=== PATIENT | female | born 1955 | race Caucasian/White ===

== ENCOUNTER 2018-08-31 14:54 | Inpatient (IN) | payer BC, MEDICAID ==
[~2018-08-31] VITALS: Ht 162.6 cm; Wt 78.9 kg
[2018-08-31 15:02] VITALS: BP 108/64
--- NOTE | 2018-08-31 15:14 | NUR ---
PT BIB ALS TO ER BED 7
--- NOTE | 2018-08-31 15:14 | NUR ---
BROUGHT IN BY EMS FROM [facility] [place]. ABNORMAL LABS DRAWN TODAY---BUN CR HIGH; HYPERKALEMIA, HYPERNATREMIA. PT HAS TRACHE ON 4 LPM, G-TUBE, COLOSTOMY, 16 FR F/C, PRESSURE ULCER TO COCCYX. HOB UP. ON LOW BED POSITION, LOCKED. BED SIDE RAILS UP X1. ER MADE AWARE OF PT STATUS.
[2018-08-31] MEDS ORDERED: [UNRECOGNIZED DRUG - CODE] GT (15:20)
[2018-08-31] MEDS ORDERED: LOV40I SUBQ (15:20)
[2018-08-31] MEDS ORDERED: OMEP20TC10 GT (15:20)
[2018-08-31] MEDS ORDERED: PRO5 GT (15:20)
[2018-08-31] MEDS ORDERED: NACL 0.9% 1,000 ML IV SCH ×2 (16:26→17:18)
[2018-08-31] MEDS ORDERED: ALBUTEROL 0.083% 2.5 MG/3 ML NEBU INH ONE ×2 (16:30)
[2018-08-31] MEDS ORDERED: methylPREDNISolone SS 125 MG/2 ML VIAL IVP ONE (16:30)
[2018-08-31] MEDS ORDERED: CALCIUM GLUCONATE 10% 1000 MG/10 ML VIAL IVP ONE (16:30)
[2018-08-31] MEDS ORDERED: INSULIN REGULAR, HUMAN 100 UNIT/ML VIAL SUBQ ONE (16:30)
[2018-08-31] MEDS ORDERED: DEXTROSE 50% 50 ML SYR IVP ONE (16:30)
[2018-08-31] MEDS ORDERED: SODIUM POLYSTYRENE 15 GM/60 ML UDBTL PR ONE (16:30)
[2018-08-31] MEDS ORDERED: SODIUM BICARBONATE 8.4% PFS 50 MEQ/50 ML SYR IVP ONE (16:30)
--- NOTE | 2018-08-31 17:00 | NUR ---
MEDICATION TO BE HELD UNTIL CENTRAL LINE IS IN PLACED. DR MARROQUIN AWARE
--- NOTE | 2018-08-31 17:05 | NUR ---
ULTRASOUND AND LAB AT [facility] TO ATTEMPT ABG, [facility]N THERAPY AND RESIRATORY DRUGS AT A LATER TIME NO SOB NOTED SUPPLEMENTAL OXYGEN AT 4 LPM VIA T-BAR/TRACHEOSTOMY
[2018-08-31] MEDS ORDERED: DOCUSATE SODIUM 100 MG GELCAP PO PRN (17:20)
[2018-08-31] MEDS ORDERED: ONDANSETRON 4 MG/2 ML VIAL IM/IVP PRN (17:20)
[2018-08-31] MEDS ORDERED: MORPHINE SULFATE 2 MG/ML SYR IVP PRN (17:20)
[2018-08-31] MEDS ORDERED: LORazepam 2 MG/ML VIAL IVP ONE (17:25)
--- NOTE | 2018-08-31 17:38 | NUR ---
[facility] THERAPY AND RESPIRATORY DRUGS (UD X 2)
--- NOTE | 2018-08-31 17:40 | NUR ---
IV ATIVAN GIVEN ORDERED PRIOR TO CENTRAL LINE INSERTION. SHANTELL BREWER, EMT; PRESSING DEPARTMENT SUPERVISOR AT BEDSIDE FOR CENTRAL LINE INSERTION.
[2018-08-31 17:42] LABS: BASOPHILS % (AUTO) 0.2 % (0.0-2.0); EOSINOPHILS # (AUTO) 0.1 K/uL (0-0.4); EOSINOPHILS % (AUTO) 0.7 % (0.0-4.0); HEMATOCRIT 27.1 % (36-48); HEMOGLOBIN 8.2 g/dL (12.0-16.0); LYMPHOCYTES # (AUTO) 0.6 K/uL (2.5-16.5); LYMPHOCYTES % (AUTO) 2.7 % (20.5-51.1); MEAN CORPUSCULAR HEMOGLOBIN 34 pg (27-31); MEAN CORPUSCULAR HGB CONC 30 g/dL (33-37); MEAN CORPUSCULAR VOLUME 110.7 fL (80-94); MONOCYTES # (AUTO) 0.6 K/uL (0.8-1.0); MONOCYTES % (AUTO) 2.9 % (1.7-9.3); NEUTROPHILS # (AUTO) 19.1 K/uL (1.8-7.7); NEUTROPHILS % (AUTO) 93.5 % (42.2-75.2); PLATELET COUNT (AUTO) 186 K/uL (140-450); RED BLOOD CELL COUNT(AUTO) 2.45 MIL/uL (4.20-5.40); RED CELL DISTRIBUTION WIDTH 16.2 % (11.6-13.7); WHITE BLOOD COUNT (AUTO) 20.4 K/uL (4.8-10.8)
[2018-08-31 17:44] LABS: APPEARANCE,URINE CLOUDY (CLEAR); BILIRUBIN,URINE NEGATIVE (NEGATIVE); BLOOD, URINE 3+ (NEGATIVE); COLOR,URINE YELLOW (YELLOW); LEUKOCYTE ESTERASE ,URINE 2+ (NEGATIVE); NITRITE, URINE POSITIVE (NEGATIVE); UGLUCOSE NEGATIVE (NEGATIVE)
--- NOTE | 2018-08-31 17:46 | NUR ---
DR. ONEIDA MARROQUIN REVIEWED ABG SAMPLE REPORT NO NEW ORDERS
[2018-08-31 17:56] LABS: RBC,URINE TOO NUMEROUS TO COUN /HPF (0-5); WBC,URINE TOO MANY TO COUNT /HPF (0-5)
[2018-08-31 17:57] LABS: ALBUMIN 1.5 g/dL (3.4-5.0); ANION GAP 33.6 (8-16); TOTAL BILIRUBIN 0.8 mg/dL (0.0-1.0)
--- NOTE | 2018-08-31 18:01 | NUR ---
CRITICAL LAB REPORT RECEIVED FROM JULIO. K+: 8.6, ECO2:7, BUN:258
[2018-08-31 18:02] LABS: POTASSIUM 8.6 mmol/L (3.5-5.1)
[2018-08-31 18:05] LABS: CREATININE 7.6 mg/dL (0.6-1.3)
[2018-08-31 18:20] LABS: PROTHROMBIN TIME 10.7 secs (10.8-13.4)
[2018-08-31 18:33] LABS: AMYLASE 989 U/L (25-115); LIPASE 5355 U/L (73-393); MAGNESIUM 2.2 mg/dL (1.8-2.4); PHOSPHORUS 8.2 mg/dL (2.5-4.9); TRIGLYCERIDES 117 mg/dL (30-150)
[2018-08-31 18:34] LABS: CHOL/HDL RATIO 4.9 (1-4.5); HDL CHOLESTEROL 9 mg/dL (40-60); LDL (CALC) 12 mg/dL (60-100)
--- NOTE | 2018-08-31 19:15 | NUR ---
Pt report given to RUY Aviles. Transfer of care at this time.
--- NOTE | 2018-08-31 19:16 | NUR ---
RECEIVED REPORT AT BEDSIDE FROM RUY HOGUE. DR HEIN AND RESIDENTS PRESENT AT BEDSIDE. DR HEIN TRYING TO START CENTRAL LINE.
--- NOTE | 2018-08-31 19:50 | NUR ---
PT ARRIVED TO ICU, AT 1954 DR. HEIN AT BEDSIDE TO INSERT LEFT FEMORAL JADIEL CATH. 1957 KELLY AT BEDSIDE FORM ULTRASOUND AT BEDSIDE. 2007, JADIEL CATH IS INSERTED ON FIRST ATTEMPT.
--- NOTE | 2018-08-31 19:55 | NUR ---
PT TRANSFERRED TO ICU, BED 1. TAKEN VIA GURNEY BY EMT, RT, AND RN. GAVE REPORT TO RUY LEIGH.
[2018-08-31 20:00] VITALS: BP 119/64
[2018-08-31 20:43] VITALS: BP 119/64
[2018-08-31 20:46] LABS: ANION GAP 27.8 (8-16); CARBON DIOXIDE 11.1 mmol/L (21-32)
[2018-08-31] MEDS ORDERED: MEROPENEM 500 MG in NACL 0.9% 50 ML IV SCH (21:00)
[2018-08-31 21:05] LABS: POTASSIUM 6.9 mmol/L (3.5-5.1)
--- NOTE | 2018-08-31 21:06 | NUR ---
PT ARRIVED FROM ER. PT AT BED EYES CLOSED. BREATHING REGULARLY. ETT TO VENT. FIO2 100%, TV 350 RR 16 FLOW 50 PEEP 5. LUNG SOUNDS CLEAR THROUGHOUT, PT NONVERBAL, PERRL 3MM, SLUGGISH, RETRACTS TO PAIN, S1S2 PRESENT, HR SINUS TACH 109, PULSES 2+ BILATERAL UPPER AND LOWER EXTREMITY, FULL, ABDOMINAL BOWEL SOUNDS ACTIVE IN ALL QUADRANTS, G-TUBE IN PLACE, COLOSTOMY APPLIANCE IN PLACE, COVINGTON IN PLACE, PT HAS LEFT FEMORAL JADIEL CATH PIGTAIL, CURRENTLY ON HEMODIALYSIS. GENERALIZED WEAKNESS ON ALL EXTREMITIES. PT HAS STAGE 4 COCCYX PRESSURE ULCER, DRESSING IS DRY AND INTACT. PT HOB AT 30 DEGREES, SIDERAILS UP X2, CALL LIGHT WITHIN REACH. WILL CONTINUE TO MONITOR PT. Addendum: 09/01/18 at 0309 by Maicol Mercado RN PRESSURE ULCER ON LEFT BUTTOCKS
--- NOTE | 2018-08-31 21:15 | NUR ---
DIALYSIS NURSE ANOOP DUENAS AT BEDSIDE, STARTED DIALYSIS AT THIS TIME. FAMILY AT BEDSIDE TO SEE PATIENT, DR FU AT BEDSIDE AND UPDATED ON PT CONDITION TO FAMILY.
[2018-08-31] MEDS ORDERED: ALBUMIN HUMAN 25% 200 ML IV ONE (21:29)
--- NOTE | 2018-08-31 21:44 | NUR ---
2029. PATIENT TRANSFERED FROM ER TO ICU 1. DR HEIN CHANGED PATIENTS CUFFLESS TRACH TO PORTEX SIZE 7 THAT HAS A CUFF.PATIENT ON SETTINGS OF AC 16 VT 350 PEEP 5 AND FIO2 100%.
[2018-08-31 22:00] VITALS: BP 140/82
--- NOTE | 2018-08-31 22:02 | NUR ---
RECEIVED ADMISSION HISTORY FROM FAMILY /SON AT BEDSIDE. SPOKE WITH SON ANURAG VIA PHONE, LISTED CONSERVATOR STATED HAS NOT FILLED OUT ADVANCE DIRECTIVE FORM.
[2018-08-31] MEDS: ALBUTEROL SULFATE/IPRATROPIU 3 ML SOL IH PRN (22:31)
--- NOTE | 2018-08-31 22:36 | NUR ---
SPUTUM UPTAINED AND SENT TO LAB. EKG DONE
[2018-08-31] MEDS ORDERED: MULT15LI1 GT (22:41)
[2018-08-31] MEDS ORDERED: ASCO500T45 PO (22:41)
--- NOTE | 2018-08-31 22:54 | NUR ---
2231 hhntx given inline
[2018-08-31] MEDS ORDERED: LORazepam 2 MG/ML VIAL IVP PRN (23:15)
[2018-08-31] MEDS ORDERED: SODIUM FERRIC GLUCONATE 125 MG in NACL 0.9% 100 ML IV SCH (23:15)
[2018-08-31] MEDS ORDERED: LORazepam 2 MG/ML VIAL ONE ×2 (23:29→23:37)
[2018-08-31] MEDS: LORazepam 2 MG/ML VIAL IVP PRN (23:30)
[2018-08-31] MEDS ORDERED: levETIRAcetam 1,000 MG in NACL 0.9% 100 ML IV ONE (23:40)
[2018-08-31] MEDS ORDERED: DEXTROSE 50% 50 ML SYR IVP PRN (23:45)
[2018-08-31] MEDS ORDERED: INSULIN LISPRO SLIDING SCALE 100 UNITS/ML VIAL SUBQ PRN (23:45)
[2018-08-31 23:49] LABS: MEAN CORPUSCULAR HEMOGLOBIN 34 pg (27-31); MEAN CORPUSCULAR HGB CONC 34 g/dL (33-37); MEAN CORPUSCULAR VOLUME 101.5 fL (80-94); PLATELET COUNT (AUTO) 123 K/uL (140-450); RED BLOOD CELL COUNT(AUTO) 1.59 MIL/uL (4.20-5.40); RED CELL DISTRIBUTION WIDTH 14.4 % (11.6-13.7); WHITE BLOOD COUNT (AUTO) 14.5 K/uL (4.8-10.8)
[2018-08-31 23:55] VITALS: BP 142/70
--- NOTE | 2018-08-31 23:59 | NUR ---
AT [address] CUNNINGHAM AND INFORMED PT WAS HAVING MILD SEIZURES. DR'S ARRIVE AT BEDSIDE, PT HAD INCREASED SEIZURE ACTIVITY, DR. FU ORDERED TO GIVE 1MG ATIVAN. PT SEIZURE ACTIVITY DID NOT SUBSIDE, ORDERED SECOND DOSE OF 2MG ATIVAN. CURAM DEVELOPER, PHOENIX DUENAS RECEIVED ORDER FROM DR. BRODY TO STOP DIALYSIS AT THIS TIME DUE TO SEIZURES AND LOW BP'S (55/20) AND ADMINISTER 1L BOLUS OF NS. BP WAS REASSESSED AND INCREASED TO 177/70, BOLUS WAS STOPPED. PT WITHOUT SEIZURE ACTIVITY AT THIS TIME AND APPEARS TO BE WITHOUT DISTRESS.
[2018-09-01] VITALS (24 sets, daily range): BP systolic 111–148; BP diastolic 54–78
[2018-09-01] MEDS ORDERED: NACL 0.9% 1,000 ML IV SCH
[2018-09-01] MEDS ORDERED: ALBUMIN HUMAN 25% 200 ML IV ONE
--- NOTE | 2018-09-01 | NUR ---
BUSINESS DEVELOPMENT RECRUITER, PHOENIX DUENAS, ENDORSED +1.6L INFUSED.
[2018-09-01 00:17] LABS: ANION GAP 18.5 (8-16); CARBON DIOXIDE 26.6 mmol/L (21-32); CREATININE 2.7 mg/dL (0.6-1.3); POTASSIUM 3.1 mmol/L (3.5-5.1)
[2018-09-01] MEDS: LORazepam 2 MG/ML VIAL IVP PRN ×2 (00:25→01:32)
[2018-09-01 00:35] LABS: HEMATOCRIT 16.2 % (36-48); HEMOGLOBIN 5.4 g/dL (12.0-16.0)
[2018-09-01 00:37] LABS: CORRECTED WHITE BLOOD COUNT 12.6 K/uL (4.5-11.0); LYMPHOCYTES % (MANUAL) 3 % (20-46); MONOCYTES % (MANUAL) 2 % (5-12)
[2018-09-01] MEDS ORDERED: MEROPENEM 500 MG VIAL IV ONE (00:52)
[2018-09-01] MEDS ORDERED: SODIUM FERRIC GLUCONATE 12.5 MG/ML AMP IV ONE (00:54)
[2018-09-01] MEDS ORDERED: SODIUM BICARBONATE 8.4% PFS 50 MEQ/50 ML SYR IVP ONE (01:00)
[2018-09-01] MEDS: SODIUM BICARBONATE 8.4% 100 MEQ in DEXTROSE 5% 1,000 ML IV SCH ×2 (01:13→09:28)
[2018-09-01 01:32] LABS: MEAN CORPUSCULAR HEMOGLOBIN 34 pg (27-31); MEAN CORPUSCULAR HGB CONC 33 g/dL (33-37); MEAN CORPUSCULAR VOLUME 102.1 fL (80-94); PLATELET COUNT (AUTO) 126 K/uL (140-450); RED CELL DISTRIBUTION WIDTH 14.7 % (11.6-13.7); WHITE BLOOD COUNT (AUTO) 15.3 K/uL (4.8-10.8)
[2018-09-01] MEDS ORDERED: LORazepam 2 MG/ML VIAL IVP ONE (01:35)
--- NOTE | 2018-09-01 01:40 | NUR ---
PT HAVING NEW ONSET OF CLONIC SEIZURES AT 0128, UPDATED DR. FU WITH PT CONDITION. ORDERED ATIVAN 2MG IVP. ADMINISTERED MEDICATION. SEIZURE STOPPED AT 0132. WILL CONTINUE TO MONITOR.
[2018-09-01] MEDS ORDERED: levETIRAcetam 100 MG/ML VIAL IV ONE (01:42)
[2018-09-01 02:15] LABS: HEMATOCRIT 16.3 % (36-48); HEMOGLOBIN 5.4 g/dL (12.0-16.0)
[2018-09-01 02:16] LABS: CORRECTED WHITE BLOOD COUNT 13.8 K/uL (4.5-11.0); LYMPHOCYTES % (MANUAL) 1 % (20-46); MONOCYTES % (MANUAL) 1 % (5-12)
--- NOTE | 2018-09-01 04:00 | NUR ---
PT AT BED, EYES CLOSED, BREATHING REGULARLY. IV FLUIDS INFUSING. HOB 30 DEGREES, SIDE RAILS UP X2, CALL LIGHT WITHIN REACH. VS STABLE AT THIS TIME. WILL CONTINUE TO MONITOR.
[2018-09-01] MEDS: MIDODRINE 5 MG TAB GT SCH ×2 (05:00→12:02)
[2018-09-01] MEDS ORDERED: VANCOMYCIN PER PHARMACY MC PRN ×2 (06:25→09:20)
--- NOTE | 2018-09-01 06:33 | NUR ---
RECEIVED PT ON DOCUMENTED SETTINGS, ALARMS ARE ON AND AUDIBLE, PTS TRACH PORTEX 7 IS SECURE, PT IN HF ASLEEP , VENT PLUGGED INTO RED OUTLET , BMV SHEILA FLORIAN TO FOLLOW Addendum: 09/01/18 at 1100 by Temitope [place] RT ON CARESCAPE VENT
--- NOTE | 2018-09-01 07:02 | NUR ---
RECEIVED BEDSIDE REPORT FROM CHIROPRACTIC CARE RN, SHANTELL, FOR CONTINUITY OF CARE. PATIENT IS LETHARGIC, UNABLE TO MAKE NEEDS KNOWN OR FOLLOW COMMANDS. PATIENT'S SKIN IS WARM, DRY, NOT INTACT, SHE HAS PRESSURE INJURY TO SACROCOCCYX, SKIN TEARS TO L. BUTTOCKS AND R. BREAST, DRESSINGS CLEAN AND DRY. SHE HAS R. FEMORAL JADIEL CATHETER IN PLACE. 1 UNIT OF BLOOD IS TRANSFUSING, NO SIGNS OF REACTION NOTED. PATIENT IS TRACH TO VENT, SETTINGS ARE AC/VC 16, FIO2 75%, TV 350, PEEP 5. BREATHING EVEN AND UNLABORED. PATIENT HAS GTUBE IN PLACE, COLOSTOMY TO TO RLQ. PATIENT HAS COVINGTON IN PLACE TO YELLOW URINE. HOB IS 30 DEGREES, BED LOCKED, SIDE RAILS UP. SAFETY PRECAUTIONS AND ALARMS ASSESSED AND ENFORCED. NO SIGNS OF DISTRESS NOTED AT THIS TIME, WILL CONTINUE TO MONITOR
[2018-09-01] MEDS ORDERED: DOCUSATE 100 MG/10 ML UDC PO PRN (07:04)
--- NOTE | 2018-09-01 07:10 | NUR ---
SHEILA REPORTED TO TO DR PRADO
--- NOTE | 2018-09-01 07:30 | NUR ---
REPORT GIVEN TO AM NURSE FOR CONTINUITY OF CARE. PT AT STABLE CONDITION AT THIS TIME.
[2018-09-01] MEDS: BLOOD GLUCOSE MONITORING 1 DEV DEV FS SCH ×4 (07:50→20:40)
--- NOTE | 2018-09-01 07:54 | NUR ---
DR. MENDIOLA AND RESIDENT PHYSICIAN AT BEDSIDE, UPDATED ON PATIENT'S CONDITION. WILL FOLLOW UP ON ANY ORDERS
--- NOTE | 2018-09-01 08:02 | NUR ---
DECREASED FIO2 TO [address]ADO
[2018-09-01] MEDS: ASCORBIC ACID 500 MG TAB PO SCH (08:14)
[2018-09-01] MEDS: ATORVASTATIN 80 MG TAB PO SCH (08:14)
[2018-09-01] MEDS: NYSTATIN 500 MU/5 ML UDC PO SCH ×4 (08:14→20:41)
--- NOTE | 2018-09-01 08:15 | NUR ---
PATIENT HAS BEEN SCREENED AND CATEGORIZED HIGH NUTRITION RISK. PATIENT WILL BE SEEN WITHIN 1-2 DAYS OF ADMISSION. 09/01/18-09/02/[address]
--- NOTE | 2018-09-01 08:15 | NUR ---
SCHEDULED MED GIVEN VIA GTUBE, H2O FLUSH 150ML GIVEN PER MD ORDER
--- NOTE | 2018-09-01 08:30 | NUR ---
STARTED NEW IV ON RIGHT FA, 24G, PT TOLERATED OK.
--- NOTE | 2018-09-01 08:40 | NUR ---
COVINGTON CARE AND ORAL CARE DONE. PT'S LOWER LIP AND TEETH HAS SOME BLOOD, BLEEDING SEEMS COMING FROM HER LOWER LIP, A PIECE OF GAUZE WAS PLACED INSIDE THE LIP TO STOP BLEEDING.
[2018-09-01] MEDS: levETIRAcetam 1,000 MG in NACL 0.9% 100 ML IV SCH ×2 (08:58→20:43)
[2018-09-01] MEDS ORDERED: ENOXAPARIN 40 MG/0.4 ML SYR SUBQ SCH (09:00)
[2018-09-01] MEDS ORDERED: NON-FORMULARY ITEM (Omeprazole 20 MG) GT SCH (09:00)
--- NOTE | 2018-09-01 09:05 | NUR ---
DR. TORIBIO IN TO SEE AND EXAMINE PATIENT, UPDATED ON PATIENT'S CONDITION. DISCUSSED POC WITH RESIDENT DR. PARRISH
--- NOTE | 2018-09-01 09:21 | NUR ---
PATIENT'S SON ANURAG CALLED, UPDATED ON PATIENT'S CONDITION. STATES THAT HE IS THE CONSERVATOR FOR PATIENT BUT HE IS OUT OF TOWN. PATIENT'S SON NUMBER IS . DR. PARRISH IS AWARE.
[2018-09-01] MEDS ORDERED: VALPROATE SODIUM 750 MG in NACL 0.9% 100 ML IV SCH (09:30)
[2018-09-01] MEDS ORDERED: PROBIOTIC SCREEN 1 EA MISC MC PRN (09:40)
[2018-09-01] MEDS: MEROPENEM 500 MG in NACL 0.9% 50 ML IV SCH ×2 (09:51→20:43)
[2018-09-01] MEDS ORDERED: VANCOMYCIN 750 MG in DEXTROSE 5% 250 ML IV SCH (10:00)
[2018-09-01] MEDS ORDERED: LANSOPRAZOLE 30 MG CAPDR GT SCH (10:00)
[2018-09-01 10:11] LABS: AMYLASE 572 U/L (25-115)
[2018-09-01 10:13] LABS: ANION GAP 17.3 (8-16); CARBON DIOXIDE 27.4 mmol/L (21-32); CREATININE 3.3 mg/dL (0.6-1.3); POTASSIUM 3.7 mmol/L (3.5-5.1)
[2018-09-01 10:20] LABS: LIPASE 2426 U/L (73-393)
--- NOTE | 2018-09-01 10:20 | NUR ---
SPOKE WITH PATIENT'S , NICHOLAS BLUE, STATES THAT THEY PREFER PATIENT TO GO TO [facility]
--- NOTE | 2018-09-01 10:50 | NUR ---
WENT TO LAB TO GET THE 2ND UNIT OF BLOOD, LAB ONLY HAS O POS BLOOD, NOT A POS. VICENTE CALLED DR PARRISH AND THEY DECIDED TO GET A POS BLOOD FROM [facility]. ASKED VICENTE TO CALL ICU WHEN THE BLOOD IS READY.
--- NOTE | 2018-09-01 11:07 | NUR ---
PATIENT'S IS HERE, UPDATED ON PATIENT'S CONDITION. SPOKE WITH HIM REGARDING TRANSFERRING PATIENT TO ANOTHER HOSPITAL FOR HIGHER LEVEL OF CARE, HE STATES THAT HE LIVES IN [facility] AND WILL ONLY ACCEPT [place]ING [place] [facility]. HE IS AWARE THAT [facility] CONTACTED [facility] BUT HE DOES NOT WANT HER TO GO THERE BECAUSE IT IS TOO FAR OF A DRIVE FOR HIM. HE STATES THAT EVEN IF [facility] WILL ACCEPT HER, HE DOES NOT WANT HER TO BE TRANSFERRED THERE. LIBRARY HISTORIAN AND DR. PARRISH ARE AWARE.
--- NOTE | 2018-09-01 11:27 | NUR ---
FAXED ALL PATIENT'S MEDICAL INFORMATION TO [facility] . FAMILY PREFERRED [facility] SINCE THEY HAVE FAMILY PHYSICIAN DR MILTON ELLIS [phone]. I RECEIVED A CALL FROM [facility] UPDATED ALL PT'S CONDITION AND PROVIDED DR MENDIOLA 'S PHONE NUMBER FOR TO DR MISTRY AND STATED WORKING ON IT AND WILL CALL BACK.
--- NOTE | 2018-09-01 11:47 | NUR ---
CALLED [facility] AND SPOKE WITH SHANTELL BED CONTROL UPDATED ALL PATIENT'S INFORMATION AND CLARIFIED AND NOTIFIED THAT DR MILTON ELLIS [phone] IS FAMILIES WITH THE PATIENT. PER SHANTELL WILL WORKING ON IT AND WILL CALL BACK.
[2018-09-01] MEDS ORDERED: THERAHONEY GEL 42.5 GM TP SCH (11:51)
[2018-09-01] MEDS ORDERED: CALCIUM ACETATE 667 MG TAB GT SCH (11:58)
--- NOTE | 2018-09-01 12:15 | NUR ---
SPOKE WITH PATIENT'S SON ANURAG REGARDING WORKING ON TRANSFERRING PATIENT TO HIGHER LEVEL OF CARE. STATES THAT HE PREFERS [facility] BUT IS OPEN TO TRANSFERRING TO [facility] IF THEY ARE WILLING TO ACCEPT HER BUT HE IS GOING TO SPEAK WITH HIS FATHER ABOUT CHANGING HIS MIND.
[2018-09-01] MEDS ORDERED: VANC750F IV (12:47)
[2018-09-01] MEDS ORDERED: MERO1PDS7 IV (12:47)
--- NOTE | 2018-09-01 13:00 | NUR ---
SHANTELL [place] [facility] [place] AND NEEDED TO SPEAK WITH TRANSFERRED THE CALL TO DR PARRISH
[2018-09-01 13:42] LABS: EOSINOPHILS # (AUTO) 0.4 K/uL (0-0.4); EOSINOPHILS % (AUTO) 1.6 % (0.0-4.0); HEMATOCRIT 20.4 % (36-48); LYMPHOCYTES # (AUTO) 0.6 K/uL (2.5-16.5); MONOCYTES # (AUTO) 0.4 K/uL (0.8-1.0); MONOCYTES % (AUTO) 1.7 % (1.7-9.3); NEUTROPHILS % (AUTO) 94.2 % (42.2-75.2); RED BLOOD CELL COUNT(AUTO) 2.08 MIL/uL (4.20-5.40)
[2018-09-01 13:45] LABS: LYMPHOCYTES % (AUTO) 2.5 % (20.5-51.1); MEAN CORPUSCULAR HEMOGLOBIN 33 pg (27-31); MEAN CORPUSCULAR HGB CONC 33 g/dL (33-37); RED CELL DISTRIBUTION WIDTH 15.5 % (11.6-13.7); WHITE BLOOD COUNT (AUTO) 24.4 K/uL (4.8-10.8)
[2018-09-01 13:53] LABS: HEMOGLOBIN 6.8 g/dL (12.0-16.0); PLATELET COUNT (AUTO) 89 K/uL (140-450)
--- NOTE | 2018-09-01 14:02 | NUR ---
CALLED VICENTE IN LAB, MADE SHE AWARE THAT SHE SOMEHOW ENTERED A PLASMA ORDER. SHE SAID IT MIGHT BE A COMPUTER ERROR AND SHE WILL FIX IT.
--- NOTE | 2018-09-01 14:20 | NUR ---
09/01/18 RD INITIAL ASSESSMENT COMPLETED PLEASE REFER TO NUTRITION ASSESSMENT UNDER CARE ACTIVITY FOR ESTIMATED NUTRITIONAL NEEDS. 1. CONTINUE NPO MEDICALLY NECESSARY 2. RECOMMEND NEPRO 35 ML/HR IF PT NEED TO INITIATE TUBE FEED -THIS WILL PROVIDED 840 ML VOLUME, 1512 KCAL, 68 GMS PROTEIN. IT WILL MEED 100% OF ENERGY AND PROTEIN NEEDS. 3. RECOMMEND FWF 130 Q4H OR PER MD 4. RD TO FOLLOW-UP 2-3 DAYS, HIGH RISK NORBERT RICO RD
--- NOTE | 2018-09-01 14:30 | NUR ---
DR PARRISH AND DATA ENTRY SPECIALIST ERMA WERE HERE, PLAN OF CARE BEEN DISCUSSED WITH PT'S AND PT'S OLDEST SON. Addendum: 09/01/18 at 1651 by Zay Qureshi RN PT'S SON
--- NOTE | 2018-09-01 14:45 | NUR ---
DR PARRISH SPOKE WITH THE NEURO SURGEON FROM [facility] AND SPOKE WITH FAMILY MEMBER PATIENT'S AND SON , DR PARRISH UPDATED ALL THE INFORMATION AND PATIENT'S CONDITION PER SON HIS BROTHER ARE COMING FOR [place] WILL DISCUSSED THE CODE STATUS WELL.
--- NOTE | 2018-09-01 14:58 | NUR ---
DR. SHAW IS HERE TO SEE AND EXAMINE PATIENT, UPDATED ON PATIENT'S CONDITION. WILL FOLLOW UP ON ANY ORDERS.
--- NOTE | 2018-09-01 15:31 | NUR ---
CALLED DR PARRISH, ASKED IF CBC IS NEEDED WHEN 2ND BAG OF PRBC IS DONE. SAID WE CAN WAIT FOR TOMORROW MORNING RESULT.
--- NOTE | 2018-09-01 15:36 | NUR ---
SPOKE WITH YASMANI FROM [facility] REGARDING PATIENT'S HX OF FLU AND PNA VACCINE, PER YASMANI FAMILY DID NOT CLAIM THAT PATIENT HAD FLU OR PNA VACCINE. WILL SPEAK WITH PATIENT'S FAMILY.
--- NOTE | 2018-09-01 16:07 | NUR ---
CALLED [facility] SPOKE WITH BED COORDINATOR FOR FOLLOW UP THE STATUS OF TRANSFER TO HIGHER LEVEL OF CARE. NO NEURO SURGEON WILL ACCEPT THE PATIENT AT THIS TIME.
--- NOTE | 2018-09-01 17:05 | NUR ---
DR. PARRISH IN TO SPEAK WITH PATIENT'S FAMILY, UPDATED ON PATIENT'S CONDITION AND PLAN OF CARE
[2018-09-01 17:26] LABS: HEMATOCRIT 23.3 % (36-48); HEMOGLOBIN 7.8 g/dL (12.0-16.0); MEAN CORPUSCULAR HEMOGLOBIN 32 pg (27-31); MEAN CORPUSCULAR HGB CONC 34 g/dL (33-37); MEAN CORPUSCULAR VOLUME 95.3 fL (80-94); PLATELET COUNT (AUTO) 85 K/uL (140-450); RED BLOOD CELL COUNT(AUTO) 2.44 MIL/uL (4.20-5.40); RED CELL DISTRIBUTION WIDTH 16.3 % (11.6-13.7)
[2018-09-01] MEDS ORDERED: SODIUM FERRIC GLUCONATE 125 MG in NACL 0.9% 100 ML IV SCH (17:30)
[2018-09-01 17:33] LABS: WHITE BLOOD COUNT (AUTO) 25.3 K/uL (4.8-10.8)
[2018-09-01] MEDS: DEXT 5% / NACL 0.45% 1,000 ML IV SCH (17:35)
[2018-09-01] MEDS: SODIUM FERRIC GLUCONATE 125 MG in NACL 0.9% 100 ML IV SCH (17:49)
[2018-09-01 17:59] LABS: LYMPHOCYTES % (MANUAL) 7 % (20-46); PROMYELOCYTES % 1 % (0-0)
--- NOTE | 2018-09-01 18:30 | NUR ---
CHANGED TRACH DRESSING, ORAL CARE DONE. PT WAS REPOSITIONED. TOLERATED OK.
--- NOTE | 2018-09-01 19:27 | NUR ---
REPORT GIVEN TO MEDICAL RECORD LIBRARIANS TEACHER NURSE FLORECITA. PT IN STABLE CONDITION.
--- NOTE | 2018-09-01 19:30 | NUR ---
RECEIVED REPORT FROM DAY SHIFT NURSE, WILL FOLLOWUP CARE.
--- NOTE | 2018-09-01 19:40 | NUR ---
PATIENT IS LETHARGIC, UNABLE TO MAKE NEEDS KNOWN OR FOLLOW COMMANDS. AFEBRILE TEMP 97.7, PERRL VERY SLUGGISH 3MM, PATIENT'S SKIN IS WARM, DRY, NOT INTACT, SHE HAS PRESSURE INJURY TO SACROCOCCYX, SKIN TEARS TO L. BUTTOCKS AND R. BREAST, DRESSINGS CLEAN AND DRY. GENERAL EDEMA BUE, BLANKETS ARE PLACED TO PREVENT POOLING. SHE HAS L. FEMORAL JADIEL CATHETER IN PLACE. RIGHT FOREARM PERIPHERAL IV IN PLACE 24G. PATIENT IS TRACH TO VENT, SETTINGS ARE AC/VC FIO2 40%, TV 350, PEEP 5 RATE 12. BREATHING EVEN AND UNLABORED LUNGS CLEAR. S1S2, SR ON MONITOR, PATIENT HAS GTUBE IN PLACE, COLOSTOMY TO TO RLQ, BOWEL SOUNDS HYPOACTIVE, ABDOMEN SOFT AND NONTENDER. PATIENT HAS COVINGTON IN PLACE TO YELLOW URINE. SCD'S IN PLACE. HOB IS 30 DEGREES, BED LOCKED, SIDE RAILS UP. SAFETY PRECAUTIONS AND ALARMS ASSESSED AND ENFORCED. NO SIGNS OF DISTRESS NOTED AT THIS TIME, WILL CONTINUE TO MONITOR
--- NOTE | 2018-09-01 19:50 | NUR ---
Received pt stable on vent support at documented settings, suctioned scant amounts of thin clear secretions, no resp distress or SOB noted at this time, Portex 7 trach secured/midline/patent, alarms set and audible, ambu bag at bedside, vent plugged into red outlet, cont pulse ox on, will cont to monitor.
--- NOTE | 2018-09-01 19:55 | NUR ---
RT DECREASED PATIENT'S FI02 TO 35%, PATIENT TOLERATING WELL.
[2018-09-01] MEDS: VALPROATE SODIUM 750 MG in NACL 0.9% 100 ML IV SCH (20:42)
--- NOTE | 2018-09-01 20:50 | NUR ---
DR. LINDSEY AT BEDSIDE TO ASSESS PATIENT. WILL FOLLOWUP ON ANY NEW ORDERS.
--- NOTE | 2018-09-01 21:00 | NUR ---
RT SWITCHED PATIENT BACK TO FI02 40%, PATIENT STABLE, SATURATING WELL.
--- NOTE | 2018-09-01 23:30 | NUR ---
CALLED DR. FU TO CLARIFY CT OF ABDOMEN/PELVIS ORDER. CONFIRMED PATIENT CURRENTLY STABLE AND TO HOLD OFF ON CT OF ABDOMEN
[2018-09-02] VITALS (24 sets, daily range): BP systolic 85–142; BP diastolic 35–86
--- NOTE | 2018-09-02 01:00 | NUR ---
PT REPOSITIONED AND VAP ORAL CARE PROVIDED. SKIN CARE ALSO PROVIDED AT THIS TIME. PT IS RESTING WELL, NO SIGNS OF LABORED BREATHING. SIDE RAILS ARE PADDED AND SUCTION EQUIPMENT READILY AVAILABLE AT BEDSIDE. WILL CONTINUE TO MONITOR.
--- NOTE | 2018-09-02 03:00 | NUR ---
VAP ORAL CARE PROVIDED, PATIENT IS REPOSITIONED AND SKIN CARE PROVIDED. LOTION APPLIED TO DRY SCALY AREAS-FEET, LEGS, SHOULDERS, BACK. PATIENT IS SUCTIONED AND SATURATING AT 98%. NO DISTRESS NOTED AT THIS TIME. WILL CONTINUE TO MONITOR.
--- NOTE | 2018-09-02 04:25 | NUR ---
BED BATH PROVIDED, SKIN CARE AND WOUNDS ASSESSED. DRESSINGS TO SACRUM AND LEFT BUTTOCK DRY AND INTACT. WILL ENDORSE CARE TO A.M NURSE FOR NEED TO FOLLOWUP WITH WOUND CARE NURSE. COVINGTON CARE AND PERINEAL CARE PROVIDED. URINE OUTPUT 380 ML CLEAR AND YELLOW. PATIENT SUCTIONED, SATURATING WELL. GTUBE FLUSHED WITH 150 ML. NO DISTRESS NOTED AT THIS TIME.
[2018-09-02] MEDS: VALPROATE SODIUM 750 MG in NACL 0.9% 100 ML IV SCH ×3 (05:08→20:51)
--- NOTE | 2018-09-02 05:50 | NUR ---
RT AT BEDSIDE TO ASSESS PATIENT. SUDDENLY SINUS TACH-115 AND DESATTING TO 85%. PATIENT IS SUCTIONED AND PULSE OX IS REPLACED. SATURATION BACK TO 99%, PATIENT IS TOLERATING WELL.
[2018-09-02] MEDS: ALBUTEROL SULFATE/IPRATROPIU 3 ML SOL IH PRN (06:16)
--- NOTE | 2018-09-02 06:16 | NUR ---
REC'D PT ON CARESCAPE VENT SETTINGS AC 12 VT 350 PEEP 5 FIO2 40% ALARMS ON AND AUDIBLE AND AMBU BAG AT SIDE OF VENT AND VENT IS PLUGGED INTO RED OUTLET, I\L TX GIVEN WITH DUONEB 3ML WITH NO ADVERSE REACTION POST TX B\S ARE RHONCHI BILATERALLY, SXN PT SMALL AMT OF CLEAR THIN SECRETIONS, PT IS TRACH WITH PORTEX 7 AND SKIN INTEGRITY IS INTACT PT IS RESTING WITH NO SIGNS OF DISTRESS NOTED
[2018-09-02] MEDS ORDERED: LANSOPRAZOLE 30 MG CAPDR GT SCH (06:30)
[2018-09-02 06:33] LABS: HEMATOCRIT 24.7 % (36-48); HEMOGLOBIN 8.4 g/dL (12.0-16.0); MEAN CORPUSCULAR HEMOGLOBIN 32 pg (27-31); MEAN CORPUSCULAR HGB CONC 34 g/dL (33-37); MEAN CORPUSCULAR VOLUME 94.6 fL (80-94); PLATELET COUNT (AUTO) 74 K/uL (140-450); RED BLOOD CELL COUNT(AUTO) 2.61 MIL/uL (4.20-5.40); RED CELL DISTRIBUTION WIDTH 16.8 % (11.6-13.7); WHITE BLOOD COUNT (AUTO) 21.8 K/uL (4.8-10.8)
[2018-09-02 06:43] LABS: CREATININE 3.5 mg/dL (0.6-1.3)
[2018-09-02 06:46] LABS: MAGNESIUM 1.3 mg/dL (1.8-2.4); PHOSPHORUS 8.4 mg/dL (2.5-4.9)
--- NOTE | 2018-09-02 06:46 | NUR ---
CRITICAL LAB VALUES REPORTED-BUN 103 AND S.Cr 3.5, PATIENT SCHEDULED FOR DIALYSIS TODAY.
--- NOTE | 2018-09-02 06:50 | NUR ---
IN TO SEE PATIENT AND TO FOLLOWUP ON PATIENT STATUS. CONFIRMED TO TRY TO SCHEDULE A TEAM/FAMILY MEETING AROUND NOON TO DISCUSS PATIENT'S STATUS.REPORTED CRITICAL LAB VALUES-BUN 103, S.cR- 3.5. WILL FOLLOWUP ON ANY NEW ORDERS.
[2018-09-02 06:55] LABS: ANION GAP 17.6 (8-16); POTASSIUM 3.6 mmol/L (3.5-5.1)
--- NOTE | 2018-09-02 07:10 | NUR ---
PATIENTS ACCUCHECK IS 63, RECHECKED, IT IS 62. GAVE PATIENT 120 ML OJ WITH 2 PACKS OF SUGAR, WILL FOLLOWUP ACCUCHECK IN 30 MINUTES.
[2018-09-02 07:13] LABS: LYMPHOCYTES % (MANUAL) 5 % (20-46); MONOCYTES % (MANUAL) 3 % (5-12)
[2018-09-02 07:16] LABS: AMYLASE 273 U/L (25-115); LIPASE 1661 U/L (73-393)
[2018-09-02] MEDS: BLOOD GLUCOSE MONITORING 1 DEV DEV FS SCH ×4 (07:20→21:00)
--- NOTE | 2018-09-02 07:25 | NUR ---
ENDORSED CARE AND GAVE BEDSIDE REPORT TO A.M NURSE SIMON FOR CONTINUITY OF CARE.
--- NOTE | 2018-09-02 07:30 | NUR ---
RECEIVED REPORT FROM JOHN WOLF NIGHT NURSE. PATIENT IS TRACH TO VENT SETTING AC 12 VT 350 FIO2 40 % O2 SAT 99% SKIN WARM DRY COLOR PINK NPO EXCEPT MED GTUBE CLAMP. ABDOMEN SOFT . COLOSTOMY BAG HAS GAS BUT NO BM. COVINGTON DRAIN CLEAR YELLOW URINE, ALL EXTREAMITIES STIFF. PT SCHEDULE FOR HEMO DIALYSIS TO DAY.
--- NOTE | 2018-09-02 07:40 | NUR ---
DR MENDIOLA AND THE RESIDENT MAKE ROUND AT BED SIDE.ORDER RECEIVED.
[2018-09-02] MEDS ORDERED: FERROUS GLUCONATE 324 MG TAB GT SCH (08:00)
--- NOTE | 2018-09-02 08:00 | NUR ---
REPOSITION ORAL CARE WITH VAP KIT.
[2018-09-02 08:32] LABS: HEPATITIS A ANTIBODY IGM Negative (Negative); HEPATITIS B SURFACE ANTIBODY Reactive (.); HEPATITIS B SURFACE ANTIGEN Negative (Negative)
[2018-09-02] MEDS: levETIRAcetam 1,000 MG in NACL 0.9% 100 ML IV SCH ×2 (08:40→20:51)
[2018-09-02] MEDS: MEROPENEM 500 MG in NACL 0.9% 50 ML IV SCH ×2 (08:40→20:51)
[2018-09-02] MEDS: ASCORBIC ACID 500 MG TAB PO SCH (08:41)
[2018-09-02] MEDS: MIDODRINE 5 MG TAB PO SCH ×3 (08:41→16:43)
[2018-09-02] MEDS: ATORVASTATIN 80 MG TAB PO SCH (08:42)
[2018-09-02] MEDS: FERROUS SULFATE 300 MG/5 ML UDC GT SCH (09:00)
--- NOTE | 2018-09-02 09:00 | NUR ---
CALLED [facility] SPOKE WITH MELLY BED COORDINATOR NO BED AVAILABLE AT THIS TIME . I ASKED MELLY IF THE NEURO SURGEON IS WILLING TO DISCUSS WITH OUR DR AND PROVIDED DR PARRISH'S NUMBER.
[2018-09-02] MEDS: NYSTATIN 500 MU/5 ML UDC PO SCH ×4 (09:06→20:54)
[2018-09-02] MEDS ORDERED: FERROUS SULFATE 300 MG/5 ML UDC GT SCH (09:15)
[2018-09-02] MEDS ORDERED: MAG SULF 2000 MG/WATER PREMIX 50 ML IV SCH ×2 (10:00→17:00)
[2018-09-02] MEDS ORDERED: BLOOD GLUCOSE MONITORING 1 DEV DEV FS SCH (11:30)
--- NOTE | 2018-09-02 11:30 | NUR ---
WOUND EVALUATION NOTE: REASON FOR WOUND EVALUATION: SACROCOCCYX PRESSURE ULCER INJURIES SKIN ASSESSMENT DONE WITH PRIMARY RN ON THIS 62 Y/O FEMALE PATIENT WITH FROM [facility] TO [facility], WITH INITIAL DIAGNOSIS OF ABNORMAL LAB RESULTS. PAST MEDICAL HISTORY INCLUDES, CVA, DYSPHAGIA WITH GT RESPIRATORY FAILURE WITH TRACH, DM, AND HX OF PRESSURE ULCERS. PT. ADMITTED WITH CHRONIC WOUND TO SACRALCOCCYX PRESSURE INJURY. ALL ABOVE INFORMATION WAS OBTAINED FROM THE ADMISSION H&P. PT�S SKIN IS WARM AND DRY, BLE HAIR GROWTH, +2 EDEMA. DORSAL PEDAL PULSES PRESENT AND NORMAL. CAPILLARY REFILLED < 3 SEC. F/C PATENT WITH MODERATE AMOUNT YELLOW COLOR URINE OUT PUT OBSERVED. PLAN OF CARE DISCUSSED WITH PRIMARY RN. INTEGUMENTARY: -TRACHEOSTOMY STOMA SITE CLEAN AND DRY, FRANCISCO-STOMA SKIN INTACT. -GT STOMA SITE DRY, FRANCISCO-STOMA SKIN INTACT -OLD HEALED SCARS TO MID ABDOMEN -RLQ ABDOMEN COLOSTOMY FUNCTIONING, FRANCISCO- OSTOMY SKIN INTACT -PRESSURE ULCER INJURY UN-STAGEABLE ON SACROCOCCYX, WOUND BED 100% GRANULATING TISSUE 2.5X3X0.8CM, WITH UNDERMINING BETWEEN 10-2 O�CLOCK AND DEEPEST TO 12 O�CLOCK AT 1.2CM, SMALL AMOUNT OF SEROSANGUINEOUS DRAINAGE, NO ODOR, FRANCISCO-WOUND SKIN FRAGILE AND INTACT, SURROUNDING REDNESS AREA 3X4CM INDICATED FURTHER DAMAGE -PRESSURE ULCER INJURY UN-STAGEABLE ON LEFT ISCHIUM 1.8X0.4, 100 % YELLOW SLOUGH, WOUND BED IS MOIST, NO ODOR, FRANCISCO-WOUND SKIN FRAGILE AND INTACT -LEFT MEDIAL THIGH DRY SKIN TEAR 1X4CM SUPERFICIAL DEPTH, WOUND BED IS PINK AND DRY, FRANICSCO-WOUND SKIN INTACT -IAD TO RIGHT AND LEFT GROINS TOWARD PERIANAL REDNESS AND MOIST -LEFT AND RIGHT HEELS BLANCHABLE REDNESS RECOMMENDATIONS: -CLEANSE SACROCOCCYX AND LEFT ISCHIUM PRESSURE ULCER WITH WOUND CLEANING SOLUTION, PAT DRY, PACK THERAHONEY GEL WITH ADAPTIC DRESSING TO WOUND BED, COVER WITH OPTIFOAM DRESSING QM-W-F AND PRN IF SOILING. -APPLY Z- GUARD TO IAD TO RIGHT AND LEFT GROINS AND PERIANAL BIDWC LEAVE IT OPEN TO AIR -APPLY VERSATEL DRESSING TO LEFT MEDIAL THIGH DRY SKIN TEAR CHANGE Q5 DAYS AND PRN IF SOILING -APPLY HEEL PROTECTORS TO BILATERAL HEELS AT ALL TIMES -TURN AND REPOSITION PATIENT Q2H, OFFLOAD SACROCOCCYX AND LEFT ISCHIUM AT ALL TIMES -ASSESS AND MONITOR SKIN CONDITION DURING POSITION CHANGE -OFFLOAD BILATERAL HEELS BY PLACING PILLOWS UNDER CALVES AT ALL TIMES, UNLESS OTHERWISE CONTRAINDICATED -KEEP SKIN CLEAN AND DRY AT ALL TIMES. -PRESSURE REDISTRIBUTION SURFACE THERAPY RECOMMENDATIONS DISCUSSED WITH PRIMARY RN WILL FOLLOW UP PATIENT Q 7-10 DAYS AND PRN. PLEASE CONTACT WOUND CARE NURSE FOR ANY QUESTIONS AND CHANGES IN WOUND CONDITION.
--- NOTE | 2018-09-02 12:00 | NUR ---
VISIT BY AND SON AT BED SIDE,
--- NOTE | 2018-09-02 12:15 | NUR ---
FAMILY MEETING SON ANURAG ARLEEN THE CARDIAC EXERCISE SPECIALIST, TO UPDATE PATIENT CONDITION.
[2018-09-02] MEDS ORDERED: diphenhydrAMINE 50 MG/ML VIAL IVP SCH (12:50)
--- NOTE | 2018-09-02 13:02 | NUR ---
sxn pt large amt of thick yellow secretions pt is receiving dialysis
[2018-09-02] MEDS ORDERED: ALBUMIN HUMAN 25% 100 ML IV SCH (14:00)
--- NOTE | 2018-09-02 14:00 | NUR ---
DR. BARNHART CALL UPDATE PT CONDITION WITH SON ANURAG.
[2018-09-02 15:07] LABS: FOLIC ACID > 20.00 ng/mL (>3.0)
--- NOTE | 2018-09-02 15:30 | NUR ---
HEMODIALYSIS COMPLETED 500 ML OF FLUID REMOVED.
[2018-09-02] MEDS ORDERED: TPN PER PHARMACY MC PRN (16:40)
[2018-09-02] MEDS: THERAHONEY GEL 42.5 GM TP SCH (16:46)
[2018-09-02] MEDS: Z-GUARD PASTE TP SCH (16:47)
[2018-09-02] MEDS: DEXT 5% / NACL 0.45% 1,000 ML IV SCH (16:50)
[2018-09-02] MEDS: ACETAMINOPHEN 325 MG TAB PO PRN (16:58)
--- NOTE | 2018-09-02 17:00 | NUR ---
temp 100.6 COLD SPONGE AND TYLENOL GIVEN ORDERED.
[2018-09-02] MEDS ORDERED: VANCOMYCIN 750 MG in DEXTROSE 5% 250 ML IV SCH (18:00)
--- NOTE | 2018-09-02 19:00 | NUR ---
REPORT GIVE TO MAGY.
--- NOTE | 2018-09-02 19:15 | NUR ---
RECEIVED BEDSIDE REPORT FROM A.M SHIFT NURSE SIMON. WILL FOLLOWUP CARE.
[2018-09-02] MEDS: SODIUM FERRIC GLUCONATE 125 MG in NACL 0.9% 100 ML IV SCH (19:36)
--- NOTE | 2018-09-02 19:37 | NUR ---
RECEIVED PATIENT TRACH PORTEX 7 TO VENT ON SETTINGS: AC/VC 350, 12, +5, 40%. VENT CHECK DONE. VENT ALARMS ON AND AUDIBLE. VENT PLUGGED INTO RED OUTLET. AMBU BAG AT BEDSIDE. AIRWAY SECURE AND PATENT. SUCTIONED MODERATE AMOUNT OF THICK YELLOW/PINK TINGED SECRETIONS. NO PRN BREATHING TX INDICATED AT THIS TIME. NO RESPIRATORY DISTRESS NOTED AT THIS TIME. WILL CONTINUE TO MONITOR.
--- NOTE | 2018-09-02 19:37 | NUR ---
CALLED RESIDENT [facility]CTORS, SPOKE WITH DR. PRADO. CLARIFIED D50% ORDER. RECEIVED AN ADDITIONAL ORDER TO GIVE ONE DOSE OF D 50% D/T BLOOD GLUCOSE AT 71
[2018-09-02 19:56] LABS: HEPATITIS B CORE AB TOTAL POSITIVE (NEGATIVE)
[2018-09-02 19:57] LABS: FERRITIN 1286 ng/mL (15 - 150); TRANSFERRIN 124 mg/dL (200 - 370)
--- NOTE | 2018-09-02 20:00 | NUR ---
PHARMACY CALLED TO REVIEW TPN ORDERED AT 1700. CONFIRMED THAT PHARMACY IS CURRENTLY CLOSED AND CLOSED AT THE TIME OF THE ORDER, WILL RECOMMEND TO ORDER D10 IVF. CALLED DR. FU TO CLARIFY TPN CANNOT BE STARTED TODAY AND THE BAG WILL BE MADE TOMORROW AFTERNOON, DR. FU ORDERED TO SWITCH D5NS TO D10 AT TKO 15MLS/HR.
--- NOTE | 2018-09-02 20:45 | NUR ---
CALLED DR. FU TO CLARIFY HEPARIN SUBQ ORDER AND PT'S PLATELETS ARE 74, CONFIRMED TO HOLD HEPARIN AT THIS TIME. SCD'S IN PLACE.
[2018-09-02] MEDS: FAMOTIDINE 20 MG/2 ML VIAL IV SCH (20:50)
[2018-09-02] MEDS: DEXTROSE 50% 50 ML SYR IVP PRN (20:55)
[2018-09-02] MEDS: DEXTROSE 10% 1,000 ML IV SCH (21:53)
--- NOTE | 2018-09-02 23:15 | NUR ---
PATIENTS GLUCOSE REMAINS LOW-73, PROTOCOL SAYS GIVE D50 FOR BELOW 70, GAVE PATIENT SMALL OJ THROUGH GTUBE. WILL CONTINUE TO MONITOR.
--- NOTE | 2018-09-02 23:30 | NUR ---
VENT CHECK DONE. ALARMS ON AND AUDIBLE. SUCTIONED SMALL AMOUNT OF THICK, YELLOW/PINK TINGED SECRETIONS. NO ACUTE DISTRESS NOTED AT THIS TIME. WILL CONTINUE TO MONITOR.
[2018-09-03] VITALS (22 sets, daily range): BP systolic 82–141; BP diastolic 44–81
--- NOTE | 2018-09-03 | NUR ---
PATIENT IS RESTING WELL IN BED, NO SIGNS OF DISTRESS, UNLABORED BREATHING, TEMPERATURE BACK DOWN TO 98.9, ICE BAGS REMOVED AND PATIENT REPOSITIONED. WILL CONTINUE TO MONITOR.
--- NOTE | 2018-09-03 01:00 | NUR ---
VAP PROTOCOL ORAL CARE GIVEN AT THIS TIME, PATIENT IS SUCTIONED PER HIGH PEAK ALARMS. OXYGENATION 99%. NO DISTRESS NOTED.
--- NOTE | 2018-09-03 03:10 | NUR ---
CALLED RADIOLOGY DEPARTMENT TO ASK IF PT CAN BE WHEELED TO THE DEPARTMENT FOR THE CT. PER MEE, SHE WILL CALL BACK TO CONFIRM.
--- NOTE | 2018-09-03 03:50 | NUR ---
RADIOLOGY CONFIRMED PATIENT IS OK TO SEND OVER FOR CT SCAN OF THE ABDOMEN
--- NOTE | 2018-09-03 04:45 | NUR ---
PATIENT IS BACK FROM CT SCAN OF THE ABDOMEN. SATURATING WELL, VITAL SIGNS WNL. PATIENT BACK IN ROOM ON PRESSURE MATTRESS.
[2018-09-03] MEDS: VALPROATE SODIUM 750 MG in NACL 0.9% 100 ML IV SCH ×3 (05:07→20:35)
[2018-09-03 05:59] LABS: ANION GAP 15.5 (8-16); CARBON DIOXIDE 26.1 mmol/L (21-32); POTASSIUM 3.6 mmol/L (3.5-5.1)
--- NOTE | 2018-09-03 06:00 | NUR ---
RT STARTED PATIENT BACK ON 40% FIO2 SATURATION IN HIGH 80'S. PATIENT TOLERATING WELL.
[2018-09-03 06:04] LABS: MAGNESIUM 1.6 mg/dL (1.8-2.4); PHOSPHORUS 4.2 mg/dL (2.5-4.9)
--- NOTE | 2018-09-03 06:50 | NUR ---
DR. PARRISH IN TO SEE PATIENT, AND UPDATE ON STATUS. PATIENT STILL FULL CODE.
[2018-09-03 07:00] LABS: HEMATOCRIT 25.8 % (36-48); HEMOGLOBIN 8.8 g/dL (12.0-16.0); MEAN CORPUSCULAR HEMOGLOBIN 33 pg (27-31); MEAN CORPUSCULAR HGB CONC 34 g/dL (33-37); MEAN CORPUSCULAR VOLUME 95.7 fL (80-94); PLATELET COUNT (AUTO) 64 K/uL (140-450); RED BLOOD CELL COUNT(AUTO) 2.69 MIL/uL (4.20-5.40); RED CELL DISTRIBUTION WIDTH 16.3 % (11.6-13.7); WHITE BLOOD COUNT (AUTO) 20.8 K/uL (4.8-10.8)
--- NOTE | 2018-09-03 07:55 | NUR ---
GAVE REPORT TO A.M NURSES MARVIN AND LASHELL , AT PT BEDSIDE FOR CONTINUITY OF CARE.
--- NOTE | 2018-09-03 07:55 | NUR ---
RECEIVED REPORT FROM TELEMETRY REGISTERED NURSE RN. PT RESTING IN IN BED. ST ON MONITOR. SKIN DRY AND WARM TO TOUCH. PUPILS REACTIVE TO LIGHT. ON TRACH TO VENT. FIO2 40% TV 350 RR 12 PEEP 5. NO SOB OR ACUTE RESPIRATORY DISTRESS NOTED. LUNGS COARSE. RIGHT FA 24G. SALINE LOCK. FLUSHED. LUQ G-TUBE IN PLACE. 0 RESIDUAL. OLD SURGICAL SCAR ON MID ABDOMEN. ABDOMEN SOFT, ROUND AND NON-TENDER. HYPOACTIVE BOWEL SOUND. LEFT FEMORAL JADIEL CATH WITH PIGTAIL IN PLACE. JADIEL CATH COVERED WITH DRESSING, INTACT. PIGTAIL FLUSHED. GOOD BLOOD RETURNS. DEX10% INFUSING AT 15 ML/HR. [place] CATH IN PLACE. CONTRACTED AND EDEMATOUS BOTH UPPER AND LOWER EXTREMITIES. KEPT PRESSURE AREAS OFF LOADED. HOB ELEVATED. BED IN LOW POSITION LOCKED. WILL CONTINUE TO MONITOR.
--- NOTE | 2018-09-03 08:00 | NUR ---
BODY TEMPERATURE 100.3 DEGREE F NOTED. COOLING MEASURES APPLIED.
[2018-09-03 08:35] LABS: LYMPHOCYTES % (MANUAL) 3 % (20-46); MONOCYTES % (MANUAL) 2 % (5-12)
[2018-09-03 08:38] LABS: AMYLASE 216 U/L (25-115); LIPASE 1259 U/L (73-393)
[2018-09-03 08:41] LABS: ALBUMIN 2.1 g/dL (3.4-5.0)
[2018-09-03 08:45] LABS: CHOL/HDL RATIO 5.8 (1-4.5)
--- NOTE | 2018-09-03 09:00 | NUR ---
BODY TEMPERATURE DECREASED TO 100 DEGREE F. COOLING MEASURES IN PLACE.
[2018-09-03] MEDS: DEXTROSE 50% 50 ML SYR IVP PRN (09:08)
--- NOTE | 2018-09-03 09:09 | NUR ---
CALLED [facility] AND SPOKE WITH CORY FOR F/U TRANSFER FOR HIGHER LEVEL OF CARE UPDATED ALL THE INFORMATION STILL NO ICU BED AVAILABLE .
[2018-09-03] MEDS: BLOOD GLUCOSE MONITORING 1 DEV DEV FS SCH ×4 (09:10→20:31)
[2018-09-03] MEDS: ATORVASTATIN 80 MG TAB PO SCH (09:28)
[2018-09-03] MEDS: NYSTATIN 500 MU/5 ML UDC PO SCH ×4 (09:28→20:32)
[2018-09-03] MEDS: ASCORBIC ACID 500 MG TAB PO SCH (09:28)
[2018-09-03] MEDS: FERROUS SULFATE 300 MG/5 ML UDC GT SCH (09:28)
[2018-09-03] MEDS: FAMOTIDINE 20 MG/2 ML VIAL IV SCH ×2 (09:29→20:32)
[2018-09-03] MEDS: MEROPENEM 500 MG in NACL 0.9% 50 ML IV SCH ×2 (09:29→20:33)
--- NOTE | 2018-09-03 09:57 | NUR ---
PT NOTED WITH BLOOD TINGED URINE. DR. HARTMAN MADE AWARE. ORDERED TO DISCONTINUE HEPARIN. WILL CARRY OUT ORDER.
--- NOTE | 2018-09-03 09:57 | NUR ---
DR. HARTMAN IN TO SEE THE PT. UPDATED PT STATUS. MADE AWARE ABOUT LOW BS 53, ADMINISTRATION OF DEX 50%. MADE AWARE OF TODAY'S LAB RESULTS AND INCREASING BODY TEMPERATURE. FOLLOW UP REGARDING FEEDING. TPN OKAY PER DR. HARTMAN.
[2018-09-03] MEDS: ALBUTEROL SULFATE/IPRATROPIU 3 ML SOL IH PRN (10:08)
--- NOTE | 2018-09-03 10:08 | NUR ---
RECEIVED ON [employer] CARESCAPE R860 VENTILATOR PLUGGED INTO RED OUTLET TOLERATING WELL WITHOUT INCIDENT TO A PORTEX DCT #7 AIRWAY SECURED WITH A YEISON TRACH TIE CUFF PRESSURE CHECKED NOTED AMBU BAG NOTED AT HOB LOC NO RES[ONSIVE TO BLUNGER MACHINE OPERATOR VERBAL COMMANDS RESPONSIVE TO PHYSICAL STIMULUS (IE: SUCTIONING) EQUAL CHEST RISE BREATH SOUNDS XP CAORSE RHONCHI AND WHEEZE BILATERAL DEEP TRACHEAL SUCTION FOR MODERATE THICK YELLOW/BLOOD SECRETIONS AIRWAY PATENT SATURATION 100% ON FIO2 OF 40% POST HHN THERAPY TITRATED FIO2 TO 30% MARVIN/RN NOTIFIED
[2018-09-03] MEDS: ACETAMINOPHEN 325 MG TAB PO PRN (10:15)
[2018-09-03] MEDS: levETIRAcetam 1,000 MG in NACL 0.9% 100 ML IV SCH ×2 (10:19→20:35)
--- NOTE | 2018-09-03 11:09 | NUR ---
DR. LAROSE MADE AWARE OF PT STATUS AND LAB RESULTS. Addendum: 09/03/18 at 1112 by Fabi Mosquera RN DR. LAROSE ALSO SAID WE WILL START G-TUBE FEEDING INSTEAD OF TPN. WILL CARRY OUT ORDER.
[2018-09-03] MEDS ORDERED: MAGNESIUM OXIDE 400 MG TAB GT SCH (11:30)
--- NOTE | 2018-09-03 11:30 | NUR ---
TEMPERATURE RECHECKED WAS 98.3 DEGREE F.
[2018-09-03] MEDS: MIDODRINE 5 MG TAB PO SCH ×2 (12:11→18:08)
--- NOTE | 2018-09-03 12:12 | NUR ---
RESTING COMFORTABLY NO DISTRESS NOTED EQUAL CHEST RISE
[2018-09-03] MEDS: Z-GUARD PASTE TP SCH (12:23)
--- NOTE | 2018-09-03 12:27 | NUR ---
RESIDUAL 0 NOTED. G-TUBE FEEDING STARTED AT 10 ML/HR. KEPT HOB ELEVATED.
--- NOTE | 2018-09-03 13:30 | NUR ---
DR. SHAW IN TO SEE PT. UPDATED PT STATUS AND LABS.
--- NOTE | 2018-09-03 14:23 | NUR ---
NO DISTRESS NOTED EQUAL CHEST RISE GOOD AERATION THROUGHOUT BILATERAL LUNG MONTERO AIRWAY PATENT
--- NOTE | 2018-09-03 15:14 | NUR ---
CAROL MADE AWARE OF SCHEDULED HD TOMORROW.
--- NOTE | 2018-09-03 15:55 | NUR ---
CALLED [facility] AND SPOKE WITH ANTIONE GRANITE COUNTERTOP INSTALLER NOTIFIED PT HAS LTAC EVAL ,PER ANTIONE WILL COME TOMORROW TO EVALUATE PATIENT.
--- NOTE | 2018-09-03 16:00 | NUR ---
ATTEMPTED TO DO AN ASSESSMENT AT BEDSIDE TO TALK TO SPOUSE IN ICU, SPOUSE JUST LEFT, WILL CALL HIM ON THE PHONE.
--- NOTE | 2018-09-03 16:07 | NUR ---
RESTING IN BED. NO SOB OR ACUTE RESPIRATORY DISTRESS NOTED. VSS. IV SITE INTACT. HOB ELEVATED. CONTINUE TO MONITOR.
--- NOTE | 2018-09-03 16:15 | NUR ---
CALLED SPOUSE NICHOLAS BLUE, TO DO AN ASSESSMENT OVER THE PHONE, SPOUSE SAID THAT HE WILL DO IT TOMORROW WHEN HE COMES IN THE HOSPITAL. INSTRUCTED MR NICHOLAS BLUE TO ASK FOR [employer] TO DO THE ASSESSMENT WHEN HE COMES TOMORROW, VERBALIZED UNDERSTANDING.
--- NOTE | 2018-09-03 16:34 | NUR ---
RESIDUAL NOTED 80 ML. CONTINUED G-TUBE FEEDING AT 10 ML/HR. HOB ELEVATED.
--- NOTE | 2018-09-03 16:39 | NUR ---
DR. PARRISH MADE AWARE OF BS AND RESIDUAL 80 ML. OKAY TO INCREASE THE RATE BY 10 ML/HR. INCREASED THE RATE TO 20 ML/HR.
--- NOTE | 2018-09-03 16:59 | NUR ---
NO DISTRESS NOTED EQUAL CHEST RISE DEEP TRACHEAL SUCTION FOR SMALL SCATTERED THICK YELLOW SECRETIONS AIRWAY PATENT INCREASED Vt TO 400 L FOR APPROXIMATELY 7 ml/kg BRODERICK NOTIFIED Addendum: 09/03/18 at 1712 by Saul Gill RT SATURATION 100% ON FIO2 OF 30% TITRATED FIO2 TO 28% BRODERICK NOTIFIED
--- NOTE | 2018-09-03 16:59 | NUR ---
PT EVALUATED BY DR. PARRISH.
--- NOTE | 2018-09-03 17:14 | NUR ---
DR. PARRISH AWARE OF FLUCTUATING BP LOW TO NORMAL.
[2018-09-03] MEDS: SODIUM FERRIC GLUCONATE 125 MG in NACL 0.9% 100 ML IV SCH (17:54)
--- NOTE | 2018-09-03 19:25 | NUR ---
REPORT GIVEN TO REGULATORY ATTORNEY RN FOR CONTINUITY OF CARE.
--- NOTE | 2018-09-03 19:30 | NUR ---
RECEIVED REPORT FROM MORNING RN, MARVIN/LASHELL, FOR CONTINUITY OF CARE. VS STABLE AT THIS TIME. AFEBRILE. FLACC 0. SPONTANEOUS EYE OPENING NOTED. PERRL. SEIZURE PRECAUTIONS IN PLACE. SR ON MONITOR. BP WNL. PULSES PALPABLE IN ALL EXTREMITIES. LUNG SOUNDS AUSCULTATED. CRACKLES HEARD. RESPIRATIONS EVEN AND UNLABORED. TRACH TO VENT WITH SETTINGS: FIO2 30%, RATE12, PEEP 5 AND TV400. NO SOB NOTED. ABDOMEN ROUND, SOFT AND NON-DISTENDED. BS ACTIVE IN ALL QUADRANTS. GTUBE ON LUQ OF ABD. NO RESIDUAL NOTED. PT ON NEPRO AT 20ML/HR. INCREASED THE RATE TO 35ML/HR WHICH IS THE GOAL. PT HAS ILEOSTOMY IN PLACE. OSTOMY BAG EMPTY AT THIS TIME. [place] CATHETER IN PLACE DRAINING CLEAR AND YELLOW URINE. PT APPEARS TO HAVE ADEQUATE URINARY OUTPUT AT THIS TIME. PT HAS LEFT FEMORAL JADIEL CATHETER WITH PIGTAIL. PT HAS RIGHT FOREARM PERIPHERAL IV ACCESS, 24G; LINE IS PATENT, INTACT AND ASYMPTOMATIC. PT HAS DEXTROSE 10% RUNNING AT 30ML/HR. PT HAS SCD IN PLACE. SPECIALIZED MATTRESS WELL. ALL SAFETY PRECAUTIONS ARE IN PLACE. WILL CONTINUE TO MONITOR PT.
--- NOTE | 2018-09-03 19:54 | NUR ---
RECEIVED PATIENT TRACH PORTEX 7 TO VENT ON SETTINGS: AC/VC 400, 12 +5, 30%. VENT CHECK DONE. VENT ALARMS ON AND AUDIBLE.VENT PLUGGED INTO RED OUTLET. AMBU BAG AT BEDSIDE. AIRWAY SECURE AND PATENT. SUCTIONED SCANT AMOUNT OF THICK, YELLOW/PINK TINGED SECRETIONS. NO ACUTE RESPIRATORY DISTRESS NOTED AT THIS TIME. WILL CONTINUE TO MONITOR.
--- NOTE | 2018-09-03 21:14 | NUR ---
VENT CHECK DONE. ALARMS ON AND AUDIBLE. AMBU BAG AT BEDSIDE. SUCTIONED SCANT AMOUNT OF THICK, YELLOW/PINK TINGED SECRETIONS. NO RESPIRATORY DISTRESS NOTED. WILL CONTINUE TO MONITOR.
--- NOTE | 2018-09-03 21:48 | NUR ---
PT TURNED AND REPOSITIONED. CURRENTLY NO CHANGE IN CONDITION. VS REMAINS STABLE. RESPIRATIONS EVEN AND UNLABORED. PT DOES NOT APPEAR TO BE EXPERIENCING ANY DISCOMFORT AT THIS TIME. FLACC 0
[2018-09-03] MEDS: DEXTROSE 10% 1,000 ML IV SCH (22:00)
--- NOTE | 2018-09-03 22:58 | NUR ---
DR. LINDSEY AT BEDSIDE TO SEE PT; UPDATED HIM REGARDING PT'S CONDITION. NO NEW ORDERS RECEIVED AT THIS TIME.
[2018-09-04] VITALS (24 sets, daily range): BP systolic 76–120; BP diastolic 43–68
--- NOTE | 2018-09-04 00:12 | NUR ---
NO CHANGE IN PT'S CONDITION. VS WNL. RESPIRATIONS REMAIN EVEN AND UNLABORED. PT OCCASIONALLY OPENS EYES. FLACC 0. PT DOES NOT APPEAR TO BE EXPERIENCING ANY DISCOMFORT AT THIS TIME.
[2018-09-04] MEDS: Z-GUARD PASTE TP SCH ×2 (00:25→15:41)
--- NOTE | 2018-09-04 01:43 | NUR ---
PT NOTED TO HAVE ELEVATED TEMPERATURE OF 102; MEDICATION ADMINISTERED. COOLING MEASURES IN PLACE. WILL CONTINUE TO MONITOR
[2018-09-04] MEDS: ACETAMINOPHEN 325 MG TAB PO PRN ×2 (01:46→09:40)
--- NOTE | 2018-09-04 03:45 | NUR ---
RECHECKED PT'S TEMPERATURE AND WAS 99.3.
--- NOTE | 2018-09-04 03:45 | NUR ---
MORNING CARE PROVIDED TO PT. PT REMAINS AFEBRILE. NO CHANGE IN PT'S CONDITION. RESPIRATION EVEN AND UNLABORED. PT TOLERATED BEING TURNED AND REPOSITIONED. COVINGTON CATHETER CARE PROVIDED. ONLY 20ML RESIDUAL ASPIRATED AT THIS TIME. ILEOSTOMY EMPTIED. HOB KEPT AT 30 DEGREES. ALL SAFETY PRECAUTIONS ARE IN PLACE. WILL CONTINUE TO MONITOR PT.
[2018-09-04] MEDS: VALPROATE SODIUM 750 MG in NACL 0.9% 100 ML IV SCH ×3 (05:08→20:40)
--- NOTE | 2018-09-04 05:53 | NUR ---
CALLED RESIDENT DOCTOR, SPOKE WITH DR. CULLEN. INFORMED HER REGARDING THE RESULTS OF THE MICROBIOLOGY. TO FOLLOW-UP WITH DR. LINDSEY.
[2018-09-04 06:07] LABS: ANION GAP 16.6 (8-16); CARBON DIOXIDE 22.9 mmol/L (21-32); CREATININE 2.7 mg/dL (0.6-1.3)
[2018-09-04 06:12] LABS: MAGNESIUM 1.6 mg/dL (1.8-2.4); PHOSPHORUS 5.3 mg/dL (2.5-4.9)
[2018-09-04 06:15] LABS: POTASSIUM 2.5 mmol/L (3.5-5.1)
[2018-09-04 06:17] LABS: AMYLASE 174 U/L (25-115); LIPASE 1293 U/L (73-393)
[2018-09-04] MEDS: BLOOD GLUCOSE MONITORING 1 DEV DEV FS SCH ×4 (06:30→20:29)
--- NOTE | 2018-09-04 06:33 | NUR ---
CALLED DR. CULLEN TO CLARIFY REGARDING MIDODRINE. SBP 116 AT THIS TIME. ACCORDING TO DR. CULLEN, HOLD MIDORINE AT THIS TIME.
[2018-09-04] MEDS: MIDODRINE 5 MG TAB PO SCH ×3 (06:34→18:44)
--- NOTE | 2018-09-04 06:45 | NUR ---
DR. PARRISH AT BEDSIDE. INFORMED HER REGARDING PT'S CONDITION. PER DR. PARRISH, DECREASE D10 AT 10ML/HR.
[2018-09-04] MEDS ORDERED: KCL 20 MEQ/WATER INJ PREMIX 200 ML IV SCH (07:00)
[2018-09-04] MEDS ORDERED: POTASSIUM CHLORIDE 20% 40 MEQ/15 ML UDC GT SCH (07:00)
--- NOTE | 2018-09-04 07:15 | NUR ---
RECEIVED REPORT FROM DORMITORY SUPERVISOR RN. PT RESTING IN IN BED. ST ON MONITOR. SKIN DRY AND WARM TO TOUCH. PUPILS REACTIVE TO LIGHT. ON TRACH TO VENT. FIO2 30% TV 400 RR 12 PEEP 5. NO SOB OR ACUTE RESPIRATORY DISTRESS NOTED. LUNGS COARSE. RIGHT FA 24G. SALINE LOCK. LUQ G-TUBE IN PLACE. 0 RESIDUAL. OLD SURGICAL SCAR ON MID ABDOMEN. ABDOMEN SOFT, ROUND AND NON-TENDER. ACTIVE BOWEL SOUND. RIGHT ILEOSTOMY BAG IN PLACE. LEFT FEMORAL JADIEL CATH WITH PIGTAIL IN PLACE. JADIEL CATH COVERED WITH DRESSING, INTACT. PIGTAIL FLUSHED. GOOD BLOOD RETURNS. DEX10% INFUSING AT 10 ML/HR. C[place] CATH IN PLACE. CONTRACTED AND EDEMATOUS BOTH UPPER AND LOWER EXTREMITIES. KEPT PRESSURE AREAS OFF LOADED. HOB ELEVATED. BED IN LOW POSITION LOCKED. WILL CONTINUE TO MONITOR.
--- NOTE | 2018-09-04 07:15 | NUR ---
REPORT GIVEN TO MORNING RN, MARVIN, FOR CONTINUITY OF CARE. VS STABLE AT THIS TIME.
[2018-09-04 07:32] LABS: BASOPHILS % (AUTO) 0.1 % (0.0-2.0); EOSINOPHILS % (AUTO) 0.2 % (0.0-4.0); MEAN CORPUSCULAR VOLUME 96.8 fL (80-94)
[2018-09-04 07:53] LABS: HEMATOCRIT 22.1 % (36-48); HEMOGLOBIN 7.4 g/dL (12.0-16.0); LYMPHOCYTES # (AUTO) 0.3 K/uL (2.5-16.5); LYMPHOCYTES % (AUTO) 1.2 % (20.5-51.1); MEAN CORPUSCULAR HEMOGLOBIN 32 pg (27-31); MEAN CORPUSCULAR HGB CONC 34 g/dL (33-37); MONOCYTES # (AUTO) 0.5 K/uL (0.8-1.0); MONOCYTES % (AUTO) 2.2 % (1.7-9.3); NEUTROPHILS # (AUTO) 21.7 K/uL (1.8-7.7); NEUTROPHILS % (AUTO) 96.3 % (42.2-75.2); PLATELET COUNT (AUTO) 50 K/uL (140-450); RED BLOOD CELL COUNT(AUTO) 2.28 MIL/uL (4.20-5.40); RED CELL DISTRIBUTION WIDTH 16.5 % (11.6-13.7)
[2018-09-04 08:19] LABS: WHITE BLOOD COUNT (AUTO) 22.5 K/uL (4.8-10.8)
[2018-09-04] MEDS: FERROUS SULFATE 300 MG/5 ML UDC GT SCH (09:00)
[2018-09-04] MEDS: MEROPENEM 500 MG in NACL 0.9% 50 ML IV SCH ×2 (09:36→20:40)
[2018-09-04] MEDS: FAMOTIDINE 20 MG/2 ML VIAL IV SCH ×2 (09:36→20:41)
[2018-09-04] MEDS: ASCORBIC ACID 500 MG TAB PO SCH (09:37)
[2018-09-04] MEDS: NYSTATIN 500 MU/5 ML UDC PO SCH ×4 (09:37→20:41)
[2018-09-04] MEDS: ATORVASTATIN 80 MG TAB PO SCH (09:37)
[2018-09-04] MEDS: levETIRAcetam 1,000 MG in NACL 0.9% 100 ML IV SCH ×2 (10:17→20:40)
--- NOTE | 2018-09-04 11:29 | NUR ---
Yoseph shaver [facility] came in and met with the regarding transfer to [facility] close to the home residence. Yoseph stated will obtain authorization from [employer] [place].
--- NOTE | 2018-09-04 11:30 | NUR ---
ANTIONE FROM [facility] VISITED PATIENT ,SPOKE WITH THE FAMILY () OK TO PLACE HER TO [facility]. PER ANTIONE WAITING FOR [facility] TO GIVEN AUTHORIZATION.
--- NOTE | 2018-09-04 12:04 | NUR ---
ORAL CARE PROVIDED. KEPT PT CLEAN AND DRY. NO SOB OR ACUTE RESPIRATORY DISTRESS NOTED. RESIDUAL 10 ML NOTED. CONTINUE ON G-TUBE FEEDING. HOB ELEVATED. BED IN LOW POSITION LOCKED. CONTINUE TO MONITOR.
[2018-09-04] MEDS ORDERED: VANCOMYCIN HCL 750 MG in DEXTROSE 5% 250 ML IV SCH (13:00)
--- NOTE | 2018-09-04 13:05 | NUR ---
09/04/18 RD FOLLOW UP COMPLETED PLEASE REFER TO NUTRITION PROGRESS NOTE UNDER CARE ACTIVITY FOR ESTIMATED NUTRITION NEEDS. RD RECOMMENDATIONS: 1. CONTINUE NEPRO AT 35 ML/HR + 130 ML OF FREE WATER FLUSH Q4H. -THIS WILL PROVIDED 840 ML VOLUME, 1512 KCAL, 68 GMS PROTEIN AND 1390 ML FREE WATER, WHICH IS ADEQUATE TO MEET 92% OF ESTIMATED ENERGY NEEDS AND 100% OF ESTIMATED PROTEIN NEEDS 2. RECOMMEND NEPHROVITE AND 220 MG ZINC SULFATE DAILY TO PROMOTE WOUND HEALING. --NOTE PT WITH UNSTAGEABLE SACRAL COCCYGEAL WOUND, UNSTAGEABLE L ISCHIUM WOUND 3. RD TO FOLLOW-UP 2-3 DAYS, HIGH RISK YANA CUTLER, RD
--- NOTE | 2018-09-04 13:35 | NUR ---
PT SUCTIONED OBTAINED SMALL AMOUNT OF THICK PALE YELLOW SECRETIONS. AIRWAY IS PATENT AND TRACH IS SECURE. PT NOT ALERT BUT NOT IN ANY DISTRESS AT THIS TIME. WILL CONTINUE TO MONITOR.
--- NOTE | 2018-09-04 14:00 | NUR ---
PT ON DIALYSIS. WOUND CARE WILL BE PROVIDED AFTER DIALYSIS.
[2018-09-04] MEDS ORDERED: MAGNESIUM OXIDE 400 MG TAB GT SCH (14:30)
--- NOTE | 2018-09-04 15:08 | NUR ---
DR. SHAW MADE AWARE OF DECREASED BP 81/42 DURING DIALYSIS. ORDERED TO GIVE ALBUMIN 25% 100 ML. WILL CARRYOUT ORDER.
[2018-09-04] MEDS ORDERED: ALBUMIN HUMAN 25% 100 ML IV SCH (15:15)
[2018-09-04] MEDS: HYDROcodone/APAP 7.5/325 MG 1 TAB PO PRN (15:40)
--- NOTE | 2018-09-04 15:56 | NUR ---
PT OPENING EYES SPONTANEOUSLY. PT BP CONTINUED TO DROP, HR CONTINUED TO INCREASE. DR. SHAW MADE AWARE OF VS AND PT STATUS. ORDERED TO STOP DIALYSIS. DIALYSIS STOPPED. DIALYSIS NURSE AT THE BEDSIDE.
[2018-09-04] MEDS: THERAHONEY GEL 42.5 GM TP SCH (16:36)
--- NOTE | 2018-09-04 17:30 | NUR ---
PT REMAINS ON DOCUMENTED VENT SETTINGS. PT NOT IN ANY DISTRESS AT THIS TIME. TRACH IS SECURE WITH A PATENT AIRWAY. VENT ALARMS REMAIN ON AND FUNCTIONING.
[2018-09-04] MEDS: SODIUM FERRIC GLUCONATE 125 MG in NACL 0.9% 100 ML IV SCH (18:42)
--- NOTE | 2018-09-04 18:47 | NUR ---
PT APPEARS CALM,RELAXED. NO SOB OR RESPIRATORY DISTRESS.NOTED. CONTINUE ON G-TUBE FEEDING. RESIDUAL 6O ML NOTED. HOB ELEVATED. BED IN LOW POSITION LOCKED.
--- NOTE | 2018-09-04 19:11 | NUR ---
FOUND PT ON MECH VENT SETTINGS OF A/C: RR 12, TIDAL VOLUME 400, PEEP 5, FIO2 30%. ALARMS ARE ON & AUDIBLE. PT MAYTE SETTINGS WELL. VENT CONNECTED TO RED PLUG OUTLET. AMBU BAG AT BEDSIDE. WILL CONT TO MONITOR PT.
--- NOTE | 2018-09-04 19:20 | NUR ---
RECEIVED REPORT FROM AM NURSE. PT AT BED EYES CLOSED, BREATHING REGULARLY, FIO2 30%, PERRL 3MM, SLUGGISH, GLASCOW 7, S1S2 PRESENT, HR REGULAR, PULSE 2+ BILATERAL UPPER AND LOWER EXTREMITIES, CAP REFILL <3S, PITTING EDEMA ON BILATERAL UPPER AND LOWER EXTREMITES 2+, LUNG SOUNDS CLEAR THROUGHOUT, TRACH TO VENT, ABDOMEN SOFT, ROUND, NONDISTENDED, NONTENDER, GTUBE IN PLACE, COLOSTOMY APPLIANCE IN PLACE, SKIN NON INTACT, SACRAL COCCYX STAGE 4 PRESSURE ULCER, DRESSING DRY AND INTACT, LEFT BUTTOCK SKIN TEAR, DRESSING DRY AND INTACT, RIGHT BREAST SKIN TEAR, DRESSING DRY AND INTACT, LEFT THIGH SKIN TEAR, DRESSING DRY AND INTACT, SKIN COLOR APPROPRIATE FOR ETHNICITY, GENERALIZED WEAKNESS, [place] CATHETER IN PLACE, LEFT FEMORAL JADIEL CATH. PIGTAIL, IV FLUIDS RUNNING, HOB AT 30 DEGREES, SIDE RAILS UP X2, CALL LIGHT WITHIN REACH. WILL CONTINUE TO MONITOR.
--- NOTE | 2018-09-04 19:25 | NUR ---
REPORT GIVEN TO REGISTERED DENTAL HYGIENIST RN FOR CONTINUITY OF CARE.
[2018-09-04] MEDS: DEXTROSE 10% 1,000 ML IV SCH (20:43)
[2018-09-04] MEDS ORDERED: PIPERACILLIN/TAZOBACTAM 2.25 GM VIAL IV ONE (21:55)
[2018-09-04] MEDS: PIPER/TAZO 2.25GM/D5W PREMIX 50 ML IV SCH (21:57)
--- NOTE | 2018-09-04 22:30 | NUR ---
DR. LINDSEY AT BEDSIDE. UPDATED MD ON PT CONDITION. NO NEW ORDERS. WILL CONTINUE TO MONITOR.
[2018-09-05] VITALS (58 sets, daily range): BP systolic 84–137; BP diastolic 34–84
[2018-09-05] MEDS: Z-GUARD PASTE TP SCH ×2 (01:37→12:48)
[2018-09-05] MEDS: HYDROcodone/APAP 7.5/325 MG 1 TAB PO PRN ×2 (02:17→17:10)
--- NOTE | 2018-09-05 04:11 | NUR ---
AM CARE PROVIDED. VAP ORAL CARE PROVIDED. PT TOLERATED PROCEDURE WELL. VS WNL. HOB AT 30 DEGREES, SIDERAILS UP X2, CALL LIGHT WITHIN REACH, WILL CONTINUE TO MONITOR.
[2018-09-05] MEDS: PIPER/TAZO 2.25GM/D5W PREMIX 50 ML IV SCH ×3 (04:48→20:03)
[2018-09-05] MEDS: VALPROATE SODIUM 750 MG in NACL 0.9% 100 ML IV SCH ×3 (04:50→20:03)
[2018-09-05] MEDS: MIDODRINE 5 MG TAB PO SCH ×3 (06:05→18:08)
--- NOTE | 2018-09-05 06:50 | NUR ---
RECEIVED PT ON CARESCAPE ON DOCUMENTED SETTINGS, ALARMS ARE ON AND AUDIBLE,PTS TRACH PORTEX 7 IS SECURE, PT IN HF NOT ALERT, BS DIMINISHED, BMV HOB VENT PLUGGED INTO RED OUTLET
[2018-09-05] MEDS: BLOOD GLUCOSE MONITORING 1 DEV DEV FS SCH ×4 (06:57→20:03)
--- NOTE | 2018-09-05 07:25 | NUR ---
CHANGE OF SHIFT REPORT GIVEN TO AM NURSE FOR CONTINUITY OF CARE PT STABLE AT THIS TIME.
--- NOTE | 2018-09-05 07:30 | NUR ---
RECEIVED REPORT FROM CHIROPRACTOR ASSISTANT RN. PT IS NONVERBAL, DOES NOT FOLLOW SIMPLE COMMANDS, AROUSABLE TO LIGHT PAIN. PERRL, FLACC 0, TEMP 100.0. ST ON MONITOR. PT IS TRACH TO VENT W/ SETTINGS: FIO2 30% TV 400, RR 12, PEEP 5. RHONCHI HEARD BILATERALLY. BREATHING EVEN AND UNLABORED. ABDOMEN SOFT, NONTENDER W/ ACTIVE BOWEL SOUNDS X 4 QUADRANTS. LUQ G-TUBE IN PLACE, NO RESIDUALS, RECEIVING NEPRO AT 35 ML/HR WITH WATER FLUSH 130 ML Q4H. RIGHT ILEOSTOMY BAG IN PLACE. LEFT FEMORAL JADIEL CATH WITH PIGTAIL PATENT AND INTACT W/ GOOD BLOOD RETURN. IV FLUID D10 INFUSING AT 30 ML/HR. C[place] CATH IN PLACE DRAINING URINE TO GRAVITY. CONTRACTED AND EDEMATOUS BOTH UPPER AND LOWER EXTREMITIES. SKIN DRY AND WARM TO TOUCH. PRESSURE AREAS OFF LOADED. HOB AT 30 DEGREES. BED IN LOW POSITION LOCKED. CALL LIGHT WITHIN REACH. WILL CONTINUE TO MONITOR.
[2018-09-05 07:58] LABS: HEMATOCRIT 20.3 % (36-48); MEAN CORPUSCULAR HEMOGLOBIN 32 pg (27-31); MEAN CORPUSCULAR HGB CONC 33 g/dL (33-37); MEAN CORPUSCULAR VOLUME 97.4 fL (80-94); PLATELET COUNT (AUTO) 42 K/uL (140-450); RED BLOOD CELL COUNT(AUTO) 2.08 MIL/uL (4.20-5.40); RED CELL DISTRIBUTION WIDTH 16.6 % (11.6-13.7); WHITE BLOOD COUNT (AUTO) 24.3 K/uL (4.8-10.8)
[2018-09-05 08:13] LABS: HEMOGLOBIN 6.7 g/dL (12.0-16.0)
[2018-09-05 08:23] LABS: CARBON DIOXIDE 22.6 mmol/L (21-32); CREATININE 2.4 mg/dL (0.6-1.3); POTASSIUM 3.6 mmol/L (3.5-5.1)
[2018-09-05 08:47] LABS: EOSINOPHILS % (MANUAL) 0 % (0-4); LYMPHOCYTES % (MANUAL) 1 % (20-46); MONOCYTES % (MANUAL) 4 % (5-12)
[2018-09-05 08:48] LABS: BASOPHILS % (MANUAL) 0 % (0-2)
[2018-09-05 08:57] LABS: MAGNESIUM 1.5 mg/dL (1.8-2.4)
[2018-09-05] MEDS: levETIRAcetam 1,000 MG in NACL 0.9% 100 ML IV SCH ×2 (09:10→20:03)
[2018-09-05] MEDS: ATORVASTATIN 80 MG TAB PO SCH (09:10)
[2018-09-05] MEDS: NYSTATIN 500 MU/5 ML UDC PO SCH ×4 (09:11→21:00)
[2018-09-05] MEDS: FERROUS SULFATE 300 MG/5 ML UDC GT SCH (09:11)
[2018-09-05] MEDS: FAMOTIDINE 20 MG/2 ML VIAL IV SCH ×2 (09:11→20:03)
[2018-09-05] MEDS: ASCORBIC ACID 500 MG TAB PO SCH (09:11)
--- NOTE | 2018-09-05 09:25 | NUR ---
MEDICATIONS ADMINISTERED ORDERED. PT TOLERATED WELL.
[2018-09-05] MEDS: ACETAMINOPHEN 325 MG TAB PO PRN (09:27)
[2018-09-05] MEDS ORDERED: MAGNESIUM OXIDE 400 MG TAB GT SCH (09:30)
--- NOTE | 2018-09-05 10:39 | NUR ---
PT'S BLOOD PRESSURE 89/[address] PARRISH MADE AWARE. ORDER RECEIVED.
[2018-09-05] MEDS ORDERED: NACL 0.9% 250 ML IV SCH (10:50)
[2018-09-05] MEDS ORDERED: ACETAMINOPHEN 325 MG TAB PO SCH (12:00)
[2018-09-05] MEDS ORDERED: FUROSEMIDE 20 MG TAB PO SCH (12:00)
--- NOTE | 2018-09-05 12:05 | NUR ---
VAP ORAL CARE GIVEN. TURNED AND REPOSITIONED FOR COMFORT AND OFF LOAD PRESSURE AREAS. NO S/SX OF DISTRESS NOTED.
[2018-09-05] MEDS: THERAHONEY GEL 42.5 GM TP SCH (12:47)
--- NOTE | 2018-09-05 13:02 | NUR ---
WOUND CARE AND TREATMENT GIVEN ORDERED. TOLERATED WELL. ALL SAFETY PRECAUTIONS IN PLACE. WILL CONTINUE TO MONITOR.
--- NOTE | 2018-09-05 13:23 | NUR ---
DR. ALVA IS HERE TO SEE PATIENT, UPDATED ON PATIENT'S CONDITION. WILL FOLLOW UP ON ANY ORDERS.
--- NOTE | 2018-09-05 14:13 | NUR ---
[facility] CALLED ASKING IF PATIENT IS STILL CONSIDERING TRANSFERRING THERE, STATES THAT THEY WILL HAVE AN ICU SPEAK WITH DR. MENDIOLA AND SEE IF PATIENT CAN BE TRANSFERRED OVER TO [place]. PER DR. PARRISH, THEY ARE STILL WILLING TO TRANSFER PATIENT.
--- NOTE | 2018-09-05 14:30 | NUR ---
DR. PARRISH UPDATED ON PT'S BLOOD PRESSURE 95/48. PER DR. PARRISH, START LEVOPHED DRIP IF SBP LOWER THAN 90.
[2018-09-05] MEDS: FUROSEMIDE 100 MG in DEXTROSE 5% 90 ML IV SCH (15:15)
--- NOTE | 2018-09-05 15:24 | NUR ---
PT SEEN AND EXAMINED BY DR. LINDSEY. UPDATES GIVEN ON PT'S CONDITION. ORDERS RECEIVED.
[2018-09-05] MEDS ORDERED: VANCOMYCIN PER PHARMACY MC PRN (15:25)
--- NOTE | 2018-09-05 15:40 | NUR ---
PT ON LASIX DRIP. NO NEED TO GIVE PO LASIX PER DR. PARRISH.
[2018-09-05] MEDS ORDERED: VANCOMYCIN 1GM/DEXT 5% PREMIX 200 ML IV SCH (16:00)
[2018-09-05 16:29] LABS: APPEARANCE,URINE SL CLOUDY (CLEAR); BILIRUBIN,URINE 1+ (NEGATIVE); BLOOD, URINE 3+ (NEGATIVE); COLOR,URINE ORANGE (YELLOW); LEUKOCYTE ESTERASE ,URINE 3+ (NEGATIVE); NITRITE, URINE NEGATIVE (NEGATIVE); PH,URINE 7.5 (5.0-9.0); UGLUCOSE NEGATIVE (NEGATIVE)
[2018-09-05 16:36] LABS: RBC,URINE 80-100 /HPF (0-5); WBC,URINE TOO MANY TO COUNT /HPF (0-5)
[2018-09-05] MEDS: ALBUMIN HUMAN 25% 50 ML IV SCH ×2 (16:39→20:03)
[2018-09-05] MEDS: NOREPINEPHRINE 16 MG in DEXTROSE 5% 250 ML IV PRN (16:57)
[2018-09-05] MEDS: SODIUM FERRIC GLUCONATE 125 MG in NACL 0.9% 100 ML IV SCH (17:10)
--- NOTE | 2018-09-05 17:15 | NUR ---
DR. PARRISH MADE AWARE OF PT'S INCREASED HR 120'S AND 130'S. ORDERS RECEIVED.
[2018-09-05] MEDS ORDERED: NACL 0.9% 250 ML IV ONE (17:20)
--- NOTE | 2018-09-05 18:25 | NUR ---
DR. FUNES IN TO SEE AND EXAMINE PT. DR. FUNES MADE AWARE OF PT'S INCREASED HR (HR 117 AT THIS TIME), CURRENT TEMP 100.3, LOW URINE OUTPUT- 250 ML DURING THE SHIFT. WILL FOLLOW UP ON ORDERS.
--- NOTE | 2018-09-05 19:05 | NUR ---
FOUND PT RESTING & ASLEEP ON [facility] VENT SETTINGS OF A/C: RR 12, TIDAL VOLUME 400, PEEP 5, FIO2 30%. ALARMS ON & AUDIBLE. VENT CONNECTED TO RED PLUG OUTLET. AMBU BAG AT BEDSIDE OF PT. TRACH IS SECURED & AIRWAY IS PATENT. WILL CONTINUE TO MONITOR PT.
--- NOTE | 2018-09-05 19:15 | NUR ---
REPORT GIVEN TO LEAD TEACHER RN FOR FOR CONTINUITY OF CARE. NO S/SX OF DISTRESS NOTED AT THIS TIME.
--- NOTE | 2018-09-05 19:30 | NUR ---
RECEIVED REPORT FROM AM NURSE, NO ACUTE DISTRESS NOTED.
--- NOTE | 2018-09-05 19:35 | NUR ---
NOTIFIED MD ABOUT NEW IV PERIPHERAL ACCESS TO L CHEST/BREAST AREA. 20 G PATENT INTACT, WITH BLOOD RETURN. STATED OK TO USE FOR BLOOD TRANSFUSION. WILL CONTINUE TO OBSERVE.
--- NOTE | 2018-09-05 19:45 | NUR ---
PT HAS EYES CLOSED; OPEN EYES SPONTANEOUSLY; RESPONDS TO NAME, UNABLE TO MOVE EXTREMITIES, BILATERAL FOOT DROP NOTED. SLUGGISH PUPILS +3, TRACH TO VENT SIZE 6 PORTEX, 30% FIO2, RHONCHI BREATH SOUNDS THROUGHOUT, MINIMAL WHITE THIN SECRETIONS VIA INLINE SUCTION. ST 100S DELAY CAP REFILL, GEN EDEMA +2-3, PITTING. ABD SOFT NON DISTEDED ACTIVE BOWEL SOUNDS ILEOSTOMY WITH DRAINAGE BAG IN PLACE, STOMA MOIST PINK DARK GREEN STOOL NOTED. PEG TUBE IN PLACE WITH FEEDINGS RUNNING. C[place] CATH IN PLACE DARK YELLOW CLOUDY URINE NOTED. SKIN NON INTACT, WITH SCATTERED BRUISING, AND PRESSURE ULCER TO SACRAL COCCYX AREA. FEMORAL CENTRAL LINE JADIEL CATH WITH PIGTAIL. PERIPHERAL IV TO L CHEST AREA 20G PATENT INTACT. LEVOPHED @ 2 MCG/MIN AND LASIX @ 5 MG/HR. PT ON SPECIALTY BED TO PROMOTE SKIN HEALING, BED LOCKED IN LOWEST POSITION, SIDE RAILS UP X3, HOB ELVATED >30 DEGREES.
[2018-09-05] MEDS: DEXTROSE 10% 1,000 ML IV SCH (20:02)
[2018-09-05] MEDS: ACETAMINOPHEN 325 MG TAB PO SCH ×2 (20:02→23:25)
--- NOTE | 2018-09-05 20:25 | NUR ---
VAP ORAL CARE, GUM BLEEDING NOTED. WILL CONTINUE TO OBSERVE.
--- NOTE | 2018-09-05 20:30 | NUR ---
PT GIVEN PREOP MEDS BENADRYL AND TYLENOL PRIOR TO TRANSFUSION
--- NOTE | 2018-09-05 22:24 | NUR ---
PT TOLERATING BLOOD TRANSFUSION. HR 103 BP 123/80 99% SPO2 RR 16 NO ACUTE DISTRESS NOTED. WILL CONTINUE TO OBSERVE.
[2018-09-06] VITALS (106 sets, daily range): BP systolic 83–141; BP diastolic 40–86
--- NOTE | 2018-09-06 00:06 | NUR ---
INFORMED MD, BLOOD TRANSFUSION ENDED. NO REACTION NOTED. WILL FOLLOW UP [facility] IN AM WITH MORNING LAB DRAW. WILL CONTINUE TO MONITOR.
[2018-09-06] MEDS: Z-GUARD PASTE TP SCH ×2 (00:09→12:18)
--- NOTE | 2018-09-06 04:50 | NUR ---
AM CARE DONE, TURNED AND REPOSITIONED. NO ACUTE DISTRESS NOTED.
[2018-09-06] MEDS: VALPROATE SODIUM 750 MG in NACL 0.9% 100 ML IV SCH ×3 (04:51→20:45)
[2018-09-06] MEDS: PIPER/TAZO 2.25GM/D5W PREMIX 50 ML IV SCH ×3 (04:51→20:10)
[2018-09-06] MEDS: MIDODRINE 5 MG TAB PO SCH ×3 (06:17→18:04)
[2018-09-06] MEDS: BLOOD GLUCOSE MONITORING 1 DEV DEV FS SCH ×4 (06:17→20:15)
[2018-09-06 06:23] LABS: ANION GAP 17.1 (8-16); CARBON DIOXIDE 20.6 mmol/L (21-32); CREATININE 2.6 mg/dL (0.6-1.3); POTASSIUM 3.7 mmol/L (3.5-5.1)
--- NOTE | 2018-09-06 06:25 | NUR ---
rec'd pt on carescape vent settings ac 12 vt 400 peep 5 fio2 30% alarms on and audible and ambu bag at hob and vent is plugged into red outlet, no hhn given at this time no signs of distress noted b\s are diminished bilaterally, sxn pt moderate amt of thick yellow secretions pt is trach with portex 7 and skin integrity is intact pt is sleeping
[2018-09-06 06:28] LABS: MAGNESIUM 1.5 mg/dL (1.8-2.4); PHOSPHORUS 4.9 mg/dL (2.5-4.9)
[2018-09-06 06:34] LABS: HEMATOCRIT 24.1 % (36-48); HEMOGLOBIN 7.9 g/dL (12.0-16.0); MEAN CORPUSCULAR HEMOGLOBIN 31 pg (27-31); MEAN CORPUSCULAR HGB CONC 33 g/dL (33-37); MEAN CORPUSCULAR VOLUME 95.1 fL (80-94); PLATELET COUNT (AUTO) 35 K/uL (140-450); RED BLOOD CELL COUNT(AUTO) 2.53 MIL/uL (4.20-5.40); RED CELL DISTRIBUTION WIDTH 17.4 % (11.6-13.7)
[2018-09-06 06:39] LABS: WHITE BLOOD COUNT (AUTO) 27.6 K/uL (4.8-10.8)
[2018-09-06 06:53] LABS: BASOPHILS % (MANUAL) 0 % (0-2); EOSINOPHILS % (MANUAL) 0 % (0-4); LYMPHOCYTES % (MANUAL) 1 % (20-46); MONOCYTES % (MANUAL) 2 % (5-12)
--- NOTE | 2018-09-06 07:21 | NUR ---
REPORT GIVEN TO DAY SHIFT FOR CONTINUITY OF CARE.
--- NOTE | 2018-09-06 07:30 | NUR ---
RECEIVED REPORT FROM REHABILITATION TEAM LEAD RN. PT OPENS EYES SPONTANEOUSLY, NONVERBAL, DOES NOT FOLLOW COMMANDS. PERRL, FLACC 0, AFEBRILE. ST ON MONITOR. PT IS TRACH TO VENT W/ SETTINGS: FIO2 30% TV 400, RR 12, PEEP 5. RHONCHI HEARD BILATERALLY. BREATHING EVEN AND UNLABORED. ABDOMEN SOFT, NONTENDER W/ ACTIVE BOWEL SOUNDS X 4 QUADRANTS. LUQ G-TUBE IN PLACE, NO RESIDUALS NOTED, PT IS RECEIVING TUBE FEEDING NEPRO AT 35 ML/HR WITH WATER FLUSH 130 ML Q4H. RIGHT ILEOSTOMY BAG IN PLACE. LEFT FEMORAL JADIEL CATH WITH PIGTAIL PATENT AND INTACT W/ GOOD BLOOD RETURN. IV FLUID D10 INFUSING AT 30 ML/HR, LEVOPHED DRIP AT 2 MCG/MIN AND LASIX DRIP AT 5 MG/HR. PERIPHERAL IV G20 TO LEFT BREAST PATENT, INTACT, SALINE LOCKED. [place] CATH IN PLACE DRAINING URINE TO GRAVITY. CONTRACTED AND EDEMATOUS BOTH UPPER AND LOWER EXTREMITIES. SKIN DRY AND WARM TO TOUCH. PRESSURE AREAS OFF LOADED. HOB AT 30 DEGREES. BED IN LOW POSITION LOCKED. CALL LIGHT WITHIN REACH. WILL CONTINUE TO MONITOR.
--- NOTE | 2018-09-06 07:49 | NUR ---
DR. BLAND AND RESIDENT GROUP AT BEDSIDE, PT EXAMINED BY DR. PARRISH. WILL FOLLOW UP ON ORDERS.
[2018-09-06 07:52] LABS: AMYLASE 134 U/L (25-115); LIPASE 945 U/L (73-393)
[2018-09-06] MEDS ORDERED: MAGNESIUM OXIDE 400 MG TAB GT SCH (08:30)
[2018-09-06] MEDS: ALBUMIN HUMAN 25% 50 ML IV SCH ×3 (08:57→21:06)
[2018-09-06] MEDS: ZINC SULF 220 MG CAP GT SCH (08:58)
[2018-09-06] MEDS: ASCORBIC ACID 500 MG TAB PO SCH (08:58)
[2018-09-06] MEDS: FERROUS SULFATE 300 MG/5 ML UDC GT SCH (08:58)
[2018-09-06] MEDS: FAMOTIDINE 20 MG/2 ML VIAL IV SCH ×2 (08:58→20:10)
[2018-09-06] MEDS: NYSTATIN 500 MU/5 ML UDC PO SCH ×4 (08:58→20:10)
[2018-09-06] MEDS: VIT-B COMP/VIT-C/FOLIC ACID 1 TAB GT SCH (08:58)
[2018-09-06] MEDS: ATORVASTATIN 80 MG TAB PO SCH (08:59)
[2018-09-06] MEDS: levETIRAcetam 1,000 MG in NACL 0.9% 100 ML IV SCH ×2 (08:59→20:11)
--- NOTE | 2018-09-06 09:15 | NUR ---
MEDICATIONS ADMINISTERED ORDERED.
[2018-09-06] MEDS: FUROSEMIDE 100 MG in DEXTROSE 5% 90 ML IV SCH (10:08)
--- NOTE | 2018-09-06 11:05 | NUR ---
PT SEEN BY DR. HARTMAN AT BEDSIDE. WILL FOLLOW UP ON ORDERS.
[2018-09-06] MEDS: DEXTROSE 50% 50 ML SYR IVP PRN (12:17)
[2018-09-06] MEDS: THERAHONEY GEL 42.5 GM TP SCH (12:18)
[2018-09-06] MEDS: ACETAMINOPHEN 325 MG TAB PO PRN (12:34)
--- NOTE | 2018-09-06 12:50 | NUR ---
DR. ALVA IN TO SEE AND EXAMINE PT, MADE AWARE OF PT'S DECREASED AND BLOOD TINGED URINE OUTPUT. WILL FOLLOW UP ON ORDERS.
[2018-09-06] MEDS ORDERED: VANCOMYCIN HCL 750 MG in DEXTROSE 5% 250 ML IV SCH (13:00)
--- NOTE | 2018-09-06 14:00 | NUR ---
PT SEEN AND EXAMINED BY DR. LINDSEY, UPDATES GIVEN ON PT'S CONDITION. WILL FOLLOW UP WITH NEW ORDERS.
--- NOTE | 2018-09-06 14:33 | NUR ---
09/06/18 RD FOLLOW UP COMPLETED PLEASE REFER TO NUTRITION PROGRESS NOTE UNDER CARE ACTIVITY FOR ESTIMATED NUTRITION NEEDS. RD RECOMMENDATIONS: 1. RECOMMEND CONTINUE NEPRO AT AT 35 ML/HR X 24 HOURS WITH 130ML FREE WATER FLUSH Q4H. THIS PROVIDES 611ML TOTAL VOLUME, 1512KCAL, 68GM PROTEIN, 780ML TOTAL FREE WATER. (ADEQUATE TO MEET 92% OF ESTIMATED ENERGY NEEDS AND 100% OF ESTIMATED PROTEIN NEEDS). 2. RECOMMEND CONTINUE NEPHROVITE, VITAMIN C AND ZINC SULFATE FOR WOUND HEALING. 3. RD WILL F/U 2-3 DAYS; HIGH RISK. ISRAEL AKHTAR RD
[2018-09-06] MEDS ORDERED: ALBUMIN HUMAN 25% 200 ML IV SCH (15:00)
--- NOTE | 2018-09-06 15:40 | NUR ---
PT'S AND SON AT BEDSIDE. UPDATES GIVEN ON PT'S CONDITION.
--- NOTE | 2018-09-06 16:30 | NUR ---
DR. PARRISH AT BEDSIDE, UPDATING PT'S CONDITION TO AND SON.
[2018-09-06] MEDS: SODIUM FERRIC GLUCONATE 125 MG in NACL 0.9% 100 ML IV SCH (18:04)
[2018-09-06] MEDS: DEXTROSE 10% 1,000 ML IV SCH (18:04)
--- NOTE | 2018-09-06 18:40 | NUR ---
DR. FUNES IN TO SEE AND EXAMINE PT. UPDATES GIVEN ON PT'S CONDITION.
--- NOTE | 2018-09-06 19:18 | NUR ---
RECEIVED REPORT FROM AM SHIFT. PT NONVERBAL. OPENS EYES SPONTANEOUSLY. ABLE TO TRACK. ON CONTACT PRECAUTIONS FOR E. COLI, ESBL URINE, PSUEDOMONAS AND HEP B. TRACT TO VENT. PORTEX SIZE 7. AC 12 VT 400 FIO2 30 PEEP 5. LUNG SOUNDS RONCHI BILATERALLY. ST ON MONITOR. GENERALIZED EDEMA NOTED. GT PATENT. ON NEPRO 35 ML/HR WITH 130 ML Q4H NO RESIDUAL NOTED. R ILEOSTOMY NOTED. F/C IN PLACE URINE PINK TINGED. SCDS BILAT NOTED. SKIN NON INTACT. R BREAST L BUTTOCK SKIN TEAR NOTED. SACRALCOCCYX DRESSING DRY, INTACT. LEFT FEMORAL LINE NOTED. R CHEST 20 G NOTED. BED IN LOWEST POSITION. CALL LIGHT WITHIN REACH. HOB 30. WILL CONTINUE TO MONITOR.
[2018-09-06] MEDS: ALBUTEROL SULFATE/IPRATROPIU 3 ML SOL IH PRN (19:21)
--- NOTE | 2018-09-06 19:25 | NUR ---
REPORT GIVEN TO NIGHT NURSE FOR CONTINUITY OF CARE. NO SIGNS OF DISTRESS NOTED AT THIS TIME.
[2018-09-06] MEDS: LINEZOLID 600 MG TAB GT SCH (20:10)
--- NOTE | 2018-09-06 20:26 | NUR ---
PAGED AGAIN DR. ALVA (NEPHRO); RETURNED MY PAGED IMMEDIATELY; UPDATED HIM ON THE LATEST MEDICAL CONDITION OF THE PATIENT; GOT NEW ORDERS TO GIVE ALBUMIN 25% IV TO PATIENT AND TO DO HEMODIALYSIS SHIP WIRER TOMORROW; [facility] HD NURSE INFORMED AND NOTIFIED IMMEDIATELY.
--- NOTE | 2018-09-06 20:35 | NUR ---
VAP ORAL CARE PROVIDED. SOME BLEEDING IN GUMS NOTED. WILL CONTINUE TO MONITOR.
[2018-09-06] MEDS ORDERED: ALBUMIN HUMAN 25% 50 ML IV ONE (21:00)
--- NOTE | 2018-09-06 21:26 | NUR ---
RECEIVED ON A Sphere 3dSCAPE R860 VENTILATOR PLUGGED INTO RED OUTLET TOLERATING WELL WITHOUT ADVERSE REACTIONS NOTED TO A PORTEX DCT #7 AIRWAY SECURED WITH A YEISON TRACH TIE CUFF PRESSURE CHECKED NOTED AMBU BAG NOTED AT HOB RESTING COMFORTABLY WITH NO EVIDENCE OF SOB NOTED EQUAL CHEST RISE AIRWAY PATENT
--- NOTE | 2018-09-06 21:30 | NUR ---
AT BEDSIDE AT THIS TIME. UPDATED ON PTS CURRENT CONDITION.
--- NOTE | 2018-09-06 21:49 | NUR ---
NO DISTRESS NOTED GOOD CHEST RISE NAD AERATION THROUGHOUT BILATERAL LUNG MONTERO AIRWAY PATENT SATURATION 99%ON FIO2 OF 30% TITRATED FIO2 T0 28% URBANO/RN NOTIFIED
--- NOTE | 2018-09-06 22:40 | NUR ---
CT TURNED AND REPOSITIONED AT THIS TIME.
--- NOTE | 2018-09-06 23:53 | NUR ---
RESTING WELL WITHOUT SOB NOTED EQUAL CHEST RISE DEEP TRACHEAL SUCTION FOR MODERATE THIN YELLOW SECRETIONS AIRWAY PATENT
[2018-09-07] VITALS (107 sets, daily range): BP systolic 93–137; BP diastolic 39–80
--- NOTE | 2018-09-07 00:15 | NUR ---
PT AFEBRILE. PT TURNED AND REPOSITIONED. VAP ORAL CARE PROVIDED AT THIS TIME. NO SIGNS OF ACUTE DISTRESS NOTED.
[2018-09-07] MEDS: Z-GUARD PASTE TP SCH ×2 (01:30→12:45)
--- NOTE | 2018-09-07 01:32 | NUR ---
NO DISTRESS NOTED GOOD CHEST RISE
[2018-09-07] MEDS: ALBUTEROL SULFATE/IPRATROPIU 3 ML SOL IH PRN ×2 (01:38→06:33)
--- NOTE | 2018-09-07 02:31 | NUR ---
PT TURNED AT REPOSITIONED AT THIS TIME
--- NOTE | 2018-09-07 03:34 | NUR ---
LOW GRADE FEVER AT THIS TIME. TEMP 100.7. WILL ADMINISTER TYLENOL 600MG VIA GT.
[2018-09-07] MEDS: ACETAMINOPHEN 325 MG TAB PO PRN ×2 (03:35→12:44)
--- NOTE | 2018-09-07 03:44 | NUR ---
NO SOB NOTED EQUAL CHEST RISE DEEP TRACHEAL SUCTION FOR MODERATE THIN YELLOW SECRETIONS AIRWAY PATENT
--- NOTE | 2018-09-07 04:30 | NUR ---
LAB AT BEDSIDE FOR AM DRAWS.
[2018-09-07] MEDS: VALPROATE SODIUM 750 MG in NACL 0.9% 100 ML IV SCH ×3 (04:47→21:23)
[2018-09-07] MEDS: PIPER/TAZO 2.25GM/D5W PREMIX 50 ML IV SCH ×2 (04:47→12:44)
[2018-09-07] MEDS: ALBUMIN HUMAN 25% 50 ML IV SCH ×3 (04:48→21:23)
--- NOTE | 2018-09-07 05:08 | NUR ---
AM CARE PROVIDED AT THIS TIME. SACCRAL COCCYX DRESSING CHANGED.
--- NOTE | 2018-09-07 05:25 | NUR ---
NO DISTRESS NOTED EQUAL CHEST RISE DEEP TRACHEAL SUCTION FOR MODERATE THICK YELLOW SECRETIONS AIRWAY PATENT
[2018-09-07 06:04] LABS: ANION GAP 20.8 (8-16); CREATININE 2.9 mg/dL (0.6-1.3)
[2018-09-07] MEDS: MIDODRINE 5 MG TAB PO SCH ×3 (06:05→18:28)
[2018-09-07 06:06] LABS: POTASSIUM 2.8 mmol/L (3.5-5.1)
[2018-09-07 06:08] LABS: MAGNESIUM 1.3 mg/dL (1.8-2.4); PHOSPHORUS 3.8 mg/dL (2.5-4.9)
--- NOTE | 2018-09-07 06:13 | NUR ---
RECEIVED CRITICAL LAB RESULTS K 2.8 BUN 41 [address] PARRISH MADE AWARE. UPDATED ON PTS CURRENT CONDITION. WILL CONTINUE TO FOLLOW UP ANY ADDITIONAL ORDERS.
[2018-09-07] MEDS ORDERED: MORPHINE SULFATE 2 MG/ML SYR IVP PRN (06:25)
[2018-09-07] MEDS ORDERED: HYDROcodone/APAP 7.5/325 MG 1 TAB PO PRN (06:25)
[2018-09-07] MEDS ORDERED: LORazepam 2 MG/ML VIAL IVP PRN (06:25)
--- NOTE | 2018-09-07 06:33 | NUR ---
RECEIVED PT ON CARESCAPE ON DOCUMENTED SETTINGS, ALARMS ARE ON AND AUDIBLE, PTS TRACH IS SECURE, PT IN HF QUIET BS DIMINISHED, BMV HOB , VENT PLUGGED INTO RED OUTLET
[2018-09-07] MEDS: BLOOD GLUCOSE MONITORING 1 DEV DEV FS SCH ×4 (06:44→21:24)
[2018-09-07 06:56] LABS: HEMATOCRIT 21.5 % (36-48); HEMOGLOBIN 7.1 g/dL (12.0-16.0); MEAN CORPUSCULAR HEMOGLOBIN 32 pg (27-31); MEAN CORPUSCULAR HGB CONC 33 g/dL (33-37); MEAN CORPUSCULAR VOLUME 95.7 fL (80-94); PLATELET COUNT (AUTO) 31 K/uL (140-450); RED BLOOD CELL COUNT(AUTO) 2.24 MIL/uL (4.20-5.40); RED CELL DISTRIBUTION WIDTH 17.1 % (11.6-13.7)
[2018-09-07] MEDS ORDERED: KCL 20 MEQ/WATER INJ PREMIX 200 ML IV SCH (07:00)
--- NOTE | 2018-09-07 07:30 | NUR ---
RECEIVED REPORT FROM RIBBON TIER RN. HEMODIALYSIS AT BEDSIDE. VSS. PT IS NONVERBAL, OPENS EYES SPONTANEOUSLY. FLACC 0, AFEBRILE. PERRL. SINUS TACHY ON MONITOR, S1 S2 HEARD. PT IS TRACH TO VENT: AC/VC FIO2 28% TV 400, RR 12, PEEP 5. LUNGS SOUND CLEAR BILATERALLY. NO SIGNS OF RESP DISTRESS NOTED. VAP ORAL CARE GIVEN. ABDOMEN SOFT, NONTENDER W/ ACTIVE BOWEL SOUNDS. G-TUBE IN PLACE TO LUQ, NO RESIDUALS NOTED, PT IS RECEIVING TUBE FEEDING NEPRO AT 35 ML/HR WITH WATER FLUSH 130 ML Q4H. RIGHT ILEOSTOMY BAG IN PLACE. LEFT FEMORAL JADIEL CATH WITH PIGTAIL IN PLACE. PERIPHERAL IV G20 TO LEFT CHEST ASYMPTOMATIC, PATENT, INTACT. PT RECEIVING IV FLUID D10 AT 30 ML/HR, LEVOPHED DRIP AT 7 MCG/MIN. [place] CATH IN PLACE DRAINING URINE TO GRAVITY. BL UPPER EXTREMITIES EDEMATOUS AND CONTRACTED. SKIN DRY AND WARM TO TOUCH. PRESSURE AREAS OFF LOADED. HEEL PROTECTORS AND SCDS IN PLACE, HOB AT 30 DEGREES. BED IN LOW POSITION LOCKED. CALL LIGHT WITHIN REACH. WILL CONTINUE TO MONITOR.
[2018-09-07 07:32] LABS: WHITE BLOOD COUNT (AUTO) 28.9 K/uL (4.8-10.8)
[2018-09-07 07:34] LABS: EOSINOPHILS % (MANUAL) 2 % (0-4); LYMPHOCYTES % (MANUAL) 5 % (20-46); MONOCYTES % (MANUAL) 5 % (5-12)
--- NOTE | 2018-09-07 08:30 | NUR ---
DR. MENDIOLA AND RESIDENT GROUP IN TO SEE PT. DR. PARRISH MADE AWARE OF WBC 28.9, HGB 7.1, PALTELET 31, MAGNESIUM 1.3. WILL FOLLOW UP ON ORDERS.
[2018-09-07] MEDS: ZINC SULF 220 MG CAP GT SCH (09:12)
[2018-09-07] MEDS: ASCORBIC ACID 500 MG TAB PO SCH (09:12)
[2018-09-07] MEDS: LINEZOLID 600 MG TAB GT SCH ×2 (09:12→21:22)
[2018-09-07] MEDS: VIT-B COMP/VIT-C/FOLIC ACID 1 TAB GT SCH (09:12)
[2018-09-07] MEDS: NYSTATIN 500 MU/5 ML UDC PO SCH ×4 (09:12→21:22)
[2018-09-07] MEDS: FAMOTIDINE 20 MG/2 ML VIAL IV SCH ×2 (09:12→21:23)
[2018-09-07] MEDS: FERROUS SULFATE 300 MG/5 ML UDC GT SCH (09:12)
[2018-09-07] MEDS: ATORVASTATIN 80 MG TAB PO SCH (09:12)
[2018-09-07] MEDS: levETIRAcetam 1,000 MG in NACL 0.9% 100 ML IV SCH ×2 (09:13→21:23)
--- NOTE | 2018-09-07 09:15 | NUR ---
MEDICATIONS ADMINISTERED ORDERED. PT TOLERATED WELL.
--- NOTE | 2018-09-07 09:45 | NUR ---
HEMODIALYSIS COMPLETED. FLUID OUTPUT 1.2 LITERS. VITAL SIGNS STABLE, STILL ON LEVOPHED DRIP AT 7 MCG/MIN.
--- NOTE | 2018-09-07 11:00 | NUR ---
CALLED [facility] SPOKE WITH ANTIONE REGARDING LTAC EVALUATION PER ANTIONE STILL WAITING FOR THE [facility] FOR AUTHORIZATION AND FAMILY WANTED CLOSE TO [place] AND WILL CALL US BACK
--- NOTE | 2018-09-07 12:00 | NUR ---
VAP ORAL CARE GIVEN. TURNED AND REPOSITIONED, PRESSURE AREAS OFF LOADED, HEEL PROTECTORS IN PLACE. WILL CONTINUE TO MONITOR.
[2018-09-07] MEDS: THERAHONEY GEL 42.5 GM TP SCH (12:45)
--- NOTE | 2018-09-07 12:45 | NUR ---
DR. PARRISH MADE AWARE OF PT'S INCREASED HEART RATE OF 120'S. NO NEW ORDER RECEIVED AT THIS TIME.
[2018-09-07] MEDS: NOREPINEPHRINE 16 MG in DEXTROSE 5% 250 ML IV PRN ×2 (13:05→16:15)
[2018-09-07] MEDS ORDERED: MAG SULF 2000 MG/WATER PREMIX 50 ML IV SCH (14:00)
[2018-09-07] MEDS ORDERED: POTASSIUM CHLORIDE 20% 40 MEQ/15 ML UDC GT SCH (14:00)
[2018-09-07 14:10] LABS: AMYLASE 105 U/L (25-115); LIPASE 708 U/L (73-393)
--- NOTE | 2018-09-07 14:30 | NUR ---
PT SEEN AND EXAMINED BY DR. SHAW. WILL FOLLOW UP ON ORDERS.
--- NOTE | 2018-09-07 16:00 | NUR ---
TURNED AND REPOSITIONED. VAP ORAL CARE DONE. TEMP 99.3 AT THIS TIME. SAFETY PRECAUTIONS IN PLACE.
--- NOTE | 2018-09-07 16:45 | NUR ---
CALLED [facility], SPOKE WITH INESSA ([phone]), REQUEST FOR MEDICAL RECORDS [place] [facility] [place] OCT-NOV RECENT ADMISSION FAXED TO [facility] FAX# [phone].
[2018-09-07] MEDS: HYDROCORTISONE NA SUCC 100 MG/2 ML VIAL IV SCH ×2 (17:39→23:43)
[2018-09-07] MEDS: ASCORBIC ACID INJ 1,500 MG in NACL 0.9% 100 ML IV SCH ×2 (18:27→23:44)
--- NOTE | 2018-09-07 19:13 | NUR ---
RECEIVED PATIENT ON CURRENT SETTINGS: AC/VC 400 RATE 12 PEEP 5 FIO2 28%. B/S: COARSE IN THE RIGHT AND LEFT UPPER LOBES AND DIMINISHED IN THE BASES. PATIENT IS QUIET WITH NO RESPIRATORY DISTRESS SEEN OR NOTED. TRACH AREA IS PROTECTED WITH GAUZE THAT IS CLEAN AND DRY. TRACH IS SECURE WITH TRACH TIES. SUCTIONED PATIENT AND RECEIVED SMALL, PALE YELLOW, THICK SECRETIONS. VENT AND ALARM SETTINGS VERIFIED. AMBU BAG AT BEDSIDE.
--- NOTE | 2018-09-07 19:22 | NUR ---
REPORT GIVEN TO LITHOGRAPHIC PROOFER RN FOR CONTINUITY OF CARE. NO SIGNS OF DISTRESS NOTED AT THIS TIME.
--- NOTE | 2018-09-07 19:35 | NUR ---
RECEIVED BEDSIDE REPORT TO MORNING SHIFT RNNATHAN. PT IS NONVERBAL, OPENS EYES SPONTANEOUSLY, DOES NOT APPEAR TO RESPOND TO COMMANDS. ST ON CLOCK SMITH. WA=347, BP 121/57, SATING 95%, AND RR=22. LUNG SOUNDS COARSE/DIMINISHED ON UPPER AND LOWER BILATERAL LOBES. ON ETT TO VENT FIO2=28, VT 400, RR=12, PEEP 5.BOWEL SOUND HYPOACTIVE X4, COLOSTOMY BAG IN PLACE. STOOL IS DARK BROWN/MUSHY. ON TUBE FEEDING TO GTUBE, NEPRO AT 35CC/HR, C[place] CATH IN PLACE. URINE IS ORANGE/YELLOW/RED IN COLOR. PT HAS LEFT FEMORAL JADIEL CATH, INFUSING D10 AT 30CC/HR AN LEVOPHED AT 7MCG/MIN. SKIN IS NON INTACT, SKIN TEAR TO RIGHT BREAST, LEFT BUTTOCK TEAR, LEFT THIGH TEAR, AND SACRALCOCCYX PRESSURE, DRESSING REMAINS IN TRACT. GENERALIZED EDEMA, WITH 1-2+ PITTING EDEMA ON BILATERAL HANDS/FEEDT. PT IS ON CONTACT ISOLATION, FALL, SEIZURE AND ASPIRATION PRECAUTIONS. HOB ABOVE 30 DEG. REPOSITIOND AND ORAL CARE PROVIDED. Addendum: 09/08/18 at 0037 by Kalie Barrios RN CORRECTION: PT IS ON TRACH TO VENT.
--- NOTE | 2018-09-07 20:00 | NUR ---
PT FAMILY AT BEDSIDE TO SEE PATIENT, UPDATED ON PT CONDITION.
[2018-09-07] MEDS: THIAMINE 200 MG in NACL 0.9% 50 ML IV SCH (21:22)
[2018-09-07] MEDS: MEROPENEM 500 MG in NACL 0.9% 50 ML IV SCH (21:23)
[2018-09-07] MEDS: DEXTROSE 10% 1,000 ML IV SCH (21:24)
--- NOTE | 2018-09-07 21:45 | NUR ---
DR. LINDSEY IN TO SEE PATIENT, UPDATED ON CONDITIONS. NO NEW ORDERS AT THIS TIME.
--- NOTE | 2018-09-07 23:32 | NUR ---
ALL PTS DOCUMENTATIONS FROM 09/01/2018 UP TO PRESENT FAXED TO [facility] [phone]/ ATTN DR FINNEY ORDERED BY DR PRADO
[2018-09-08] VITALS (58 sets, daily range): BP systolic 96–145; BP diastolic 41–78
[2018-09-08] MEDS: Z-GUARD PASTE TP SCH ×2 (00:31→13:19)
--- NOTE | 2018-09-08 01:15 | NUR ---
ROUTINE VENT CHECK AND PATIENT ASSESSMENT. B/S: COARSE IN THE LEFT AND RIGHT UPPER LOBES AND DIMINISHED IN THE BASES. CHANGED HME. SUCTIONED PATIENT AND RECEIVED SMALL, PALE YELLOW, THICK SECRETIONS. AIRWAY IS PATENT. NO CHANGES TO VENT SETTINGS.
--- NOTE | 2018-09-08 03:20 | NUR ---
DR. FU IN TO SEE PATIENT, UPDATED ON CONDITIONS. DR. FU PERFORMED NEUORO CHECKS FOR PT, APPROX GCS OF 6.
--- NOTE | 2018-09-08 04:00 | NUR ---
AM CARES PROVIDED WITH VAP AND COVINGTON CATH CARE. PT HAS GENERALIZED EDEMA, PITTING 1-2+ ON HANDS/FEET. PT HAS PEELING SKIN ON BILATERAL LEGS. SKIN TEAR ON BUTTOCKS, DRESSING CHANGED. REPOSITIONED AND PILLOW SUPPORT PROVIDED.
[2018-09-08] MEDS: VALPROATE SODIUM 750 MG in NACL 0.9% 100 ML IV SCH ×3 (04:11→21:26)
--- NOTE | 2018-09-08 04:40 | NUR ---
KYRIE FROM LAB AT BEDSIDE TO COLLECT SAMPLE. Addendum: 09/08/18 at 0442 by Kalie Barrios RN BLOOD DRAW COMPLETED BY MACY MACHADO RN.
--- NOTE | 2018-09-08 05:12 | NUR ---
ROUTINE VENT CHECK AND PATIENT ASSESSMENT. SUCTIONED PATIENT AND RECEIVED SMALL, WHITE, THIN SECRETIONS. ORALLY SUCTIONED PATIENT AND RECEIVED SMALL AMOUNT OF SECRETIONS. CHANGED INNER CANNULA AND TRACH GAUZE/PADDING WITH NO INCIDENT. AIRWAY IS PATENT.
[2018-09-08] MEDS: ASCORBIC ACID INJ 1,500 MG in NACL 0.9% 100 ML IV SCH ×3 (05:44→18:16)
[2018-09-08] MEDS: HYDROCORTISONE NA SUCC 100 MG/2 ML VIAL IV SCH ×3 (05:44→18:16)
--- NOTE | 2018-09-08 05:57 | NUR ---
URINE OUTPUT OF 300ML VIA COVINGTON CATH, AND COLOSTOMY BAG OUTPUT OF 175ML.
[2018-09-08 06:18] LABS: MAGNESIUM 1.8 mg/dL (1.8-2.4); PHOSPHORUS 2.4 mg/dL (2.5-4.9)
[2018-09-08 06:19] LABS: ANION GAP 16.7 (8-16); CARBON DIOXIDE 19.8 mmol/L (21-32); CREATININE 1.9 mg/dL (0.6-1.3); POTASSIUM 4.5 mmol/L (3.5-5.1); TOTAL BILIRUBIN 2.4 mg/dL (0.0-1.0)
[2018-09-08] MEDS: MIDODRINE 5 MG TAB PO SCH ×3 (06:26→19:56)
[2018-09-08] MEDS: BLOOD GLUCOSE MONITORING 1 DEV DEV FS SCH ×4 (06:28→20:05)
--- NOTE | 2018-09-08 06:34 | NUR ---
RECEIVED CRITICAL LAB VALUE OF 4.5, REPORTED TO DR. FU, NO NEW ORDERS AT THIS TIME.
--- NOTE | 2018-09-08 06:42 | NUR ---
RECEIVED CALL FROM DR. PARRISH, UPDATED ON PATIPEGGY CONDTION. NEW ORDERS IN CHANGE IVF TO NS.
[2018-09-08] MEDS: NACL 0.9% 1,000 ML IV SCH (06:48)
[2018-09-08 06:52] LABS: HEMATOCRIT 21.5 % (36-48); MEAN CORPUSCULAR HEMOGLOBIN 32 pg (27-31); MEAN CORPUSCULAR HGB CONC 33 g/dL (33-37); MEAN CORPUSCULAR VOLUME 96.2 fL (80-94); RED BLOOD CELL COUNT(AUTO) 2.23 MIL/uL (4.20-5.40); RED CELL DISTRIBUTION WIDTH 17.3 % (11.6-13.7)
--- NOTE | 2018-09-08 07:21 | NUR ---
RECEIVED BEDSIDE REPORT FROM INDUSTRIAL TECHNOLOGY TEACHER RN, LU, FOR CONTINUITY OF CARE. PATIENT IS NONVERBAL, OPENS EYES SPONTANEOUSLY, UNABLE TO MAKE NEEDS KNOWN OR FOLLOW COMMANDS. PATIENT SKIN IS WARM, DRY, AFEBRILE, NOT INTACT, SHE HAS PRESSURE INJURY TO SACROCOCCYX, SKIN TEAR TO R. BREAST AND L. BUTTOCKS, DRESSING CLEAN AND DRY, MINIMAL DRAINAGE NOTED. PATIENT HAS CENTRAL LINE JADIEL CATHETER WITH PIGTAIL TO LEFT FEMORAL, LEVOPHED RUNNING AT 2MCG/KG/MIN. SHE IS TRACH TO VENT, BREATHING EVEN AND UNLABORED. SR ON MONITOR, FLACC 0. PATIENT HAS R. ILEOSTOMY IN PLACE. [place] CATHETER IN PLACE TO CLEAR YELLOW URINE. HOB IS 35 DEGREES, BED LOCKED, SIDE RAILS UP. SAFETY ALARMS AND PRECAUTIONS ASSESSED AND ENFORCED. NO SIGNS OF DISTRESS NOTED, WILL CONTINUE TO MONITOR.
--- NOTE | 2018-09-08 07:27 | NUR ---
REC'D PT ON CARESCAPE VENT SETTINGS AC12 VT 400 PEEP 5 28% ALARMS ON AND AUDIBLE AND ABMU BAG AT SIDE OF VENT AND VENT IS PLUGGED INTO RED OUTLET, NO HHN NEEDED AND B\S ARE COARSE SXN PT NO RETURN OF SECRETIONS, PT IS TRACH WITH PORTEX 7 AND SKIN INTEGRITY IS INTACT
--- NOTE | 2018-09-08 07:29 | NUR ---
GAVE REPORT TO MORNING SHIFT DEDA REDMOND.
--- NOTE | 2018-09-08 08:40 | NUR ---
PATIENT'S AT BEDSIDE, UPDATED ON PATIENT'S CONDITION.
[2018-09-08 08:44] LABS: WHITE BLOOD COUNT (AUTO) 33.7 K/uL (4.8-10.8)
[2018-09-08 08:47] LABS: PLATELET COUNT (AUTO) 45 K/uL (140-450)
[2018-09-08 08:48] LABS: LYMPHOCYTES % (MANUAL) 3 % (20-46); MONOCYTES % (MANUAL) 5 % (5-12)
[2018-09-08 08:52] LABS: AMYLASE 97 U/L (25-115); LIPASE 779 U/L (73-393)
--- NOTE | 2018-09-08 09:00 | NUR ---
PATIENT IS OFF LEVOPHED DRIP, BP STABLE AT THIS TIME, WILL CONTINUE TO MONITOR
[2018-09-08] MEDS: FERROUS SULFATE 300 MG/5 ML UDC GT SCH (09:03)
[2018-09-08] MEDS: LINEZOLID 600 MG TAB GT SCH ×2 (09:04→21:47)
[2018-09-08] MEDS: MEROPENEM 500 MG in NACL 0.9% 50 ML IV SCH ×2 (09:04→21:26)
[2018-09-08] MEDS: VIT-B COMP/VIT-C/FOLIC ACID 1 TAB GT SCH (09:04)
[2018-09-08] MEDS: ZINC SULF 220 MG CAP GT SCH (09:04)
[2018-09-08] MEDS: FAMOTIDINE 20 MG/2 ML VIAL IV SCH ×2 (09:04→21:26)
[2018-09-08] MEDS: NYSTATIN 500 MU/5 ML UDC PO SCH ×4 (09:04→21:27)
[2018-09-08] MEDS: ATORVASTATIN 80 MG TAB PO SCH (09:04)
[2018-09-08] MEDS: levETIRAcetam 1,000 MG in NACL 0.9% 100 ML IV SCH ×2 (09:04→21:48)
--- NOTE | 2018-09-08 09:39 | NUR ---
DR. SHAW IN TO SEE PATIENT, UPDATED ON PATIENT'S CONDITION. STATES ORDER FOR HEMODIALYSIS TOMORROW. WILL FOLLOW UP ON ANY ORDERS.
--- NOTE | 2018-09-08 10:10 | NUR ---
SPOKE WITH CLERICAL AND ADMINISTRATIVE WORKERS, STATES PATIENT WAS NOT ACCEPTED TO [place].
[2018-09-08] MEDS: THIAMINE 200 MG in NACL 0.9% 50 ML IV SCH (10:12)
[2018-09-08] MEDS ORDERED: SODIUM PHOS / POTASSIUM PHOS 1 PKT PDR PO SCH (10:20)
--- NOTE | 2018-09-08 10:37 | NUR ---
Received call this am from Robert @ [facility], ph [phone], that Dr Grewal(neurologist) reviewed records & would not accept pt due to nothing more they can do for pt than doing here. Updated pt's nurse, Kendal. Called & informed Dr Castillo, wants to know if [place] [facility] spoke w Dr Flaherty, that they were supposed to speak. Called & asked Robert, states Dr Grewal did not speak w Dr Flaherty will ask Dr Grewal call Dr Flaherty, have Dr's cell #. Updated Dr Castillo.
--- NOTE | 2018-09-08 10:51 | NUR ---
LAB REPORTED LACTIC ACID 4.5. DR. LAROSE MADE AWARE.
--- NOTE | 2018-09-08 10:58 | NUR ---
CALLED [facility] #[phone]. MADE AWARE ABOUT SCHEDULED HD FOR TOMORROW.
[2018-09-08 12:53] LABS: BASOPHILS % (AUTO) 0.1 % (0.0-2.0); HEMOGLOBIN 7.1 g/dL (12.0-16.0); LYMPHOCYTES # (AUTO) 0.5 K/uL (2.5-16.5); LYMPHOCYTES % (AUTO) 1.6 % (20.5-51.1); MEAN CORPUSCULAR HEMOGLOBIN 31 pg (27-31); MEAN CORPUSCULAR HGB CONC 32 g/dL (33-37); MEAN CORPUSCULAR VOLUME 96.7 fL (80-94); MONOCYTES # (AUTO) 2.2 K/uL (0.8-1.0); MONOCYTES % (AUTO) 6.7 % (1.7-9.3); NEUTROPHILS # (AUTO) 29.7 K/uL (1.8-7.7); NEUTROPHILS % (AUTO) 91.6 % (42.2-75.2); PLATELET COUNT (AUTO) 40 K/uL (140-450); RED BLOOD CELL COUNT(AUTO) 2.27 MIL/uL (4.20-5.40); RED CELL DISTRIBUTION WIDTH 16.9 % (11.6-13.7)
[2018-09-08 13:05] LABS: WHITE BLOOD COUNT (AUTO) 32.4 K/uL (4.8-10.8)
[2018-09-08 13:18] LABS: ANION GAP 18.9 (8-16); CARBON DIOXIDE 18.7 mmol/L (21-32); POTASSIUM 4.6 mmol/L (3.5-5.1)
[2018-09-08] MEDS: THERAHONEY GEL 42.5 GM TP SCH (13:19)
--- NOTE | 2018-09-08 14:27 | NUR ---
ELENI PLANNING Called & spoke w Robert @ [facility], ph [phone], Dr Flaherty discussed w Dr Grewal in length & pt not accepted. Closed case @ [place]. Received call from Dr Castillo & informed, states plan for LTAC. Called & left msg hari Fox dc coordinator @ [facility] ph [phone], for auth for LTAC. Addendum: 09/08/18 at 1444 by Gale Ramírez CM Called Yoseph @ [place], ph [phone], & gave him Dominique @ [facility] contact info for auth. Addendum: 09/08/18 at 1559 by Gale Ramírez CM Received call from JENNIFER Ngo @ [facility] ph [phone], [facility] working to see if meets LTAC criteria. Updated on pt info requested. States needs to send to [employer] [employer] if will give auth. Gave # for Dr Castillo for MD to . Called & updated Yoseph @ [facility] CM contact information. Addendum: 09/08/18 at 1612 by Gale Ramírez CM Called & left msg for , Yakov Valentine ph [phone], to call back for dc planning update. Did not leave name of pt.
--- NOTE | 2018-09-08 19:13 | NUR ---
RECEIVED PATIENT TRACH PORTEX 7 TO MECHANICAL VENTILATOR ON SETTINGS: AC/VC 400, 12, +5, 28%. VENT CHECK DONE. VENT PLUGGED INTO RED OUTLET. VENT ALARMS ON AND AUDIBLE. AIRWAY SECURE AND PATENT. SUCTIONED MODERATE AMOUNT OF THICK, PALE YELLOW SECRETIONS. AMBU BAG AT BEDSIDE. WILL CONTINUE TO MONITOR.
--- NOTE | 2018-09-08 19:15 | NUR ---
RECEIVED REPORT FROM AM NURSE. PT AT BED EYES CLOSED. BREATHING REGULARLY. TRACH TO VENT. FI02 28% AC/VC SETTINGS, TV 400 RR 12, TV 400. LUNG SOUNDS CLEAR THROUGHOUT. PERRL 3MM, SLUGGISH, FLACC 0, HR REGULAR, S1S2 PRESENT, PULSES 2+ BILATERAL UPPER AND LOWER EXTREMITIES, GENERALIZED EDEMA, CAP REFILL <3S, ABDOMEN, SOFT, ROUND, NONDISTENDED, NONTENDER, BOWEL SOUNDS ACTIVE IN ALL QUADRANTS, GENERALIZED WEAKNESS, FC IN PLACE, GTUBE IN PLACE, IV FLUIDS RUNNING. TEMP 98.0 F, SKIN NON INTACT, WARM AND DRY, APPROPRIATE FOR ETHNICITY, DRESSINGS DRY AND INTACT, HOB AT 30 DEGREES, SIDERAILS UP X2, CALL LIGHT WITHIN REACH.
--- NOTE | 2018-09-08 19:29 | NUR ---
ENDORSED CONTINUITY OF CARE TO SHELL MAKER LOCKSTITCH RNSHANTELL. NO SIGNS OF DISTRESS NOTED.
--- NOTE | 2018-09-08 21:15 | NUR ---
MEDICATIONS GIVEN. VAP ORAL CARE PERFORMED. PT TOLERATED WELL. VS WNL. HOB AT 30 DEGREES, SIDE RAILS UP X2, CALL LIGHT WITHIN REACH. WILL CONTINUE TO MONITOR
[2018-09-08] MEDS: ALBUTEROL SULFATE/IPRATROPIU 3 ML SOL IH PRN (23:16)
--- NOTE | 2018-09-08 23:25 | NUR ---
VENT CHECK DONE. ALARMS ON AND AUDIBLE. PRN BREATHING TREATMENT ADMINISTERED DUE TO EXPIRATORY WHEEZING; PATIENT RESPONDED WITH IMPROVEMENT. NO ACUTE RESPIRATORY DISTRESS NOTED AT THIS TIME. WILL CONTINUE TO MONITOR.
[2018-09-09] VITALS (24 sets, daily range): BP systolic 103–139; BP diastolic 51–76
--- NOTE | 2018-09-09 00:15 | NUR ---
VAP ORAL CARE PERFORMED. PT TOLERATED WELL. VS WNL. HOB AT 30 DEGREES, SIDE RAILS UP X2, CALL LIGHT WITHIN REACH. WILL CONTINUE TO MONITOR
--- NOTE | 2018-09-09 01:20 | NUR ---
PT AT BED, EYES CLOSED, BREATHING REGULARLY, PT STABLE AT THIS TIME. WILL CONTINUE TO MONITOR.
[2018-09-09] MEDS: Z-GUARD PASTE TP SCH ×2 (01:47→13:28)
--- NOTE | 2018-09-09 03:00 | NUR ---
AM CARE PROVIDED. PT TOLERATED PROCEDURE WELL. HOB 30 DEGREES, SIDE RAILS X2, CALL LIGHT WITHIN REACH.
[2018-09-09] MEDS: VALPROATE SODIUM 750 MG in NACL 0.9% 100 ML IV SCH ×3 (04:50→20:14)
[2018-09-09] MEDS: MIDODRINE 5 MG TAB PO SCH ×3 (06:10→18:24)
[2018-09-09 06:34] LABS: HEMATOCRIT 23.7 % (36-48); HEMOGLOBIN 7.7 g/dL (12.0-16.0); MEAN CORPUSCULAR HEMOGLOBIN 32 pg (27-31); MEAN CORPUSCULAR HGB CONC 33 g/dL (33-37); PLATELET COUNT (AUTO) 54 K/uL (140-450); RED BLOOD CELL COUNT(AUTO) 2.42 MIL/uL (4.20-5.40); RED CELL DISTRIBUTION WIDTH 16.9 % (11.6-13.7)
[2018-09-09 07:07] LABS: CARBON DIOXIDE 16.3 mmol/L (21-32); POTASSIUM 4.8 mmol/L (3.5-5.1)
[2018-09-09 07:08] LABS: ANION GAP 20.5 (8-16); CREATININE 2.3 mg/dL (0.6-1.3)
[2018-09-09 07:09] LABS: AMYLASE 130 U/L (25-115); LIPASE 1042 U/L (73-393)
[2018-09-09 07:10] LABS: WHITE BLOOD COUNT (AUTO) 34.6 K/uL (4.8-10.8)
[2018-09-09 07:13] LABS: MAGNESIUM 1.8 mg/dL (1.8-2.4); PHOSPHORUS 4.2 mg/dL (2.5-4.9)
[2018-09-09] MEDS: BLOOD GLUCOSE MONITORING 1 DEV DEV FS SCH ×4 (07:38→21:00)
[2018-09-09 07:39] LABS: LYMPHOCYTES % (MANUAL) 2 % (20-46); MONOCYTES % (MANUAL) 6 % (5-12)
--- NOTE | 2018-09-09 07:39 | NUR ---
REPORT GIVEN ON AM NURSE. PT AT STABLE CONDITION AT THIS TIME.
--- NOTE | 2018-09-09 07:40 | NUR ---
RECEIVED BEDSIDE REPORT FROM GRINDER TENDER RN, PT EYES OPEN, APHASIC, UNABLE TO FOLLOW COMMANDS, VSS, FLACC 0, TRACH TO VENT WITH SETTING FIO2 28%, TV 400, R 12, PEEP 5, O2 97%, SR ON MANAGER PAID, GENERALIZED EDEMA NOTED, SOFT ROUND ABDOMEN WITH ACTIVE BOWEL SOUNDS, GT IN PLACE FEEDING WITH NEPRO AT 35 ML/HR, NO RESIDUALS, LLEOSTOMY IN PLACE WITH YELLOW FECES IN BAG, [place] CATHETER IN PLACE WITH CLEAR YELLOW URINE VIA GRAVITY, UNABLE TO MOVE ALL EXTREMITIES, SEVERE WEAKNESS NOTED, SKIN IS WARM AND DRY TO TOUCH, OPEN WOUND PRESENT(SEE WOUND ASSESSMENT), CENTRAL LINE TO LEFT FEMORAL, JADIEL CATHETER, PATENT, KVO. HOB ELEVATED, SEIZURE PRECAUTION AND SAFETY MEASURES IN PLACE, ORAL CARE PROVIDED, POSITION CHANGED FOR OFF LOAD PRESSURE, WILL CONTINUE TO MONITOR.
[2018-09-09] MEDS: NACL 0.9% 1,000 ML IV SCH (08:09)
[2018-09-09] MEDS: NYSTATIN 500 MU/5 ML UDC PO SCH ×5 (08:10→20:14)
[2018-09-09] MEDS: FAMOTIDINE 20 MG/2 ML VIAL IV SCH ×2 (08:10→20:13)
[2018-09-09] MEDS: VIT-B COMP/VIT-C/FOLIC ACID 1 TAB GT SCH (08:10)
[2018-09-09] MEDS: ATORVASTATIN 80 MG TAB PO SCH (08:10)
[2018-09-09] MEDS: ZINC SULF 220 MG CAP GT SCH (08:10)
[2018-09-09] MEDS: LINEZOLID 600 MG TAB GT SCH ×2 (08:10→20:15)
[2018-09-09] MEDS: FERROUS SULFATE 300 MG/5 ML UDC GT SCH (08:11)
--- NOTE | 2018-09-09 08:15 | NUR ---
SCHEDULED MEDICATION GIVEN VIA GT, PT TOLERATED WELL.
[2018-09-09] MEDS: MEROPENEM 500 MG in NACL 0.9% 50 ML IV SCH ×2 (08:43→20:14)
[2018-09-09] MEDS: levETIRAcetam 1,000 MG in NACL 0.9% 100 ML IV SCH ×2 (08:43→20:15)
--- NOTE | 2018-09-09 09:00 | NUR ---
HD NURSE AT BEDSIDE, WILL START HD.
--- NOTE | 2018-09-09 10:09 | NUR ---
SPOKE TO LEAH AT [phone], HE STATED THAT THEY ARE STILL WAITING FOR INSURANCE AUTHORIZATION. CALLED [facility], SPOKE TO KEVAN RODRIGUEZ AT [phone]. SHE STATED THAT SHE SENT TO CLINICALS TO HER DIRECTOR AND IS STILL IN REVIEW. PROVIDED HER OF MY CONTACT INFO.
--- NOTE | 2018-09-09 12:30 | NUR ---
HD COMPLETED, PT TOLERATED WELL, 1.5L OUTPUT PER HD NURSE, VSS.
[2018-09-09] MEDS: THERAHONEY GEL 42.5 GM TP SCH (13:28)
--- NOTE | 2018-09-09 14:35 | NUR ---
09/09/18 RD FOLLOW UP COMPLETED PLEASE REFER TO NUTRITION ASSESSMENT UNDER CARE ACTIVITY FOR ESTIMATED NUTRITIONAL NEEDS. 1. CONTINUE DIET NEPRO AT 35 ML/HR X 24 HOURS WITH 130ML -THIS PROVIDES 611ML TOTAL VOLUME, 1512KCAL, 68GM PROTEIN, 780ML TOTAL FREE WATER. IT MEETS 92% OF ESTIMATED ENERGY NEEDS AND 100% OF ESTIMATED PROTEIN NEEDS. 2. CONTINUE FREE WATER FLUSH Q4H. 3. CONTINUE NEPRHO-JONN AND ZINC SULFATE FOR WOUND HEALING RD TO FOLLOW-UP 2-3 DAYS, HIGH RISK NORBERT RICO, RD
--- NOTE | 2018-09-09 14:51 | NUR ---
PER KEVAN, , SHE STATED THAT LTAC PLACEMENT HAD BEEN DENIED. BUT REQUESTED AN MD TO MD CALL. PROVIDED ME WITH THE PHONE NUMBER TO CONTACT [phone] PARRISH MADE AWARE.
--- NOTE | 2018-09-09 15:15 | NUR ---
DR. SHAW CAME IN TO SEE PT AT BEDSIDE, NO NEW ORDER AT THIS TIME.
--- NOTE | 2018-09-09 16:00 | NUR ---
NO CHANGE OF CONDITION, VSS, FLACC 0, PM CARE AND ORAL CARE PROVIDED, F/C CARE PROVIDED, POSITION CHANGED FOR OFF LOAD PRESSURE.
--- NOTE | 2018-09-09 16:34 | NUR ---
CONTACTED LTAC APPEAL'S DEPARTMENT FOR EXPEDITED APPEAL AT [phone], ABLE TO SPEAK TO ANAI, SHE STATED SHE NEED TO TRANSFER ME TO THE AUTHORIZATION DEPARTMENT [phone]. GOT TRANSFERRED TO ANOTHER DEPARTMENT AND ABLE TO SPEAK TO DEANDRE WITH REFERENCE #[id number]. A FORM FOR APPEAL CAN BE PRINTED OUT ONLINE. [facility] WILL FOLLOW UP.
--- NOTE | 2018-09-09 18:00 | NUR ---
PT IS RESTING IN BED WITH EYES OPEN, NO S/S OF DISTRESS, VSS, FLACC 0, POSITION CHANGED FOR OFF LOAD PRESSURE.
--- NOTE | 2018-09-09 19:15 | NUR ---
RECEIVED PATIENT TRACH PORTEX 7 TO MECHANICAL VENTILATOR ON SETTINGS: AC/VC 400, 12, +5, 28%. VENT CHECK DONE. VENT PLUGGED INTO RED OUTLET. VENT ALARMS ON AND AUDIBLE. AMBU BAG AT BEDSIDE. AIRWAY SECURE AND PATENT. SUCTIONED MODERATE AMOUNT OF THICK, WHITE SECRETIONS. NO ACUTE RESPIRATORY DISTRESS NOTED AT THIS TIME. WILL CONTINUE TO MONITOR.
--- NOTE | 2018-09-09 19:20 | NUR ---
RECEIVED REPORT AT BEDSIDE WITH Chuy MANRIQUE. WILL FOLLOWUP CARE.
--- NOTE | 2018-09-09 19:23 | NUR ---
REPORT GIVEN TO WOOD HEEL FLAP RUBBER NURSE AT BEDSIDE FOR CONTINUE OF CARE.
--- NOTE | 2018-09-09 19:30 | NUR ---
DR. FU AT BEDSIDE TO ASSESS PATIENT, WILL FOLLOWUP CARE. Addendum: 09/09/18 at 2159 by Patricia Harper RN CORRECTION- IN TO GET UPDATE ON PATIENT NOT DR. FU.
--- NOTE | 2018-09-09 19:45 | NUR ---
AT BEDSIDE TO ASSESS PATIENT.
--- NOTE | 2018-09-09 20:00 | NUR ---
PATIENT IS RESTING COMFORTABLY IN BED WITH NO SIGNS OF DISTRESS. EQUAL CHEST RISE, SR ON MONITOR, FLACC 0. PATIENT IS AFEBRILE-97.7, SKIN IS WARM AND DRY, EDEMATOUS, +1 PITTING ON BUE AND BLE, PERRL, SLUGGISH. PATIENT IS TRACH TO VENT, FI02 28%, TV 400, PEEP 5, RATE 12. PATIENTS ABDOMEN IS SOFT AND NONTENDER, ACTIVE BOWEL SOUNDS, RIGHT ILEOSTOMY AND LEFT UPPER QUADRANT GTUBE IN PLACE. PATIENT HAS A LEFT FEMORAL JADIEL CATHETER IN PLACE WITH NS RUNNING AT 10 ML/HR. PATIENT IS GTUBE TO TUBE FEEDING AT 35ML/HR WITH 130ML FLUSH Q4H. [place] CATHETER IN PLACE WITH YELLOW URINE AND SEDIMENTS. SCD'S IN PLACE AND PRESSURE MATTRESS. FALL RISK AND CONTACT PRECAUTION SIGNS IN PLACE, SAFETY WRISTBANDS ARE IN PLACE, PADDED SIDERAILS ARE UP, HOB ELEVATED 30 DEGREES AND BED IN LOWEST POSITION. WILL CONTINUE TO MONITOR PATIENT.
--- NOTE | 2018-09-09 21:00 | NUR ---
VAP PROTOCAL ORAL CARE PROVIDED, PATIENT REPOSITIONED, AND SKIN CARE PROVIDED. PATIENT IS TOLERATING WELL, RESTING COMFORTABLY.
--- NOTE | 2018-09-09 22:50 | NUR ---
REPOSITIONED PATIENT, PROVIDED SKIN CARE. NO SIGNS OF REACTION TO NEW ANTIBIOTICS. PATIENT IS AFEBRILE. WILL CONTINUE TO MONITOR.
[2018-09-10] VITALS (23 sets, daily range): BP systolic 101–142; BP diastolic 43–81
--- NOTE | 2018-09-10 01:40 | NUR ---
REPORT GIVEN BY THE PREVIOUS NURSE. PT IS OPEN EYES NON VERBAL. TRACH TO VENT WITH TRACH PORTEX 7 WITH VENTILATOR ON SETTINGS: MODE AC,RATE 12 TIDAL VOLUME 400 FIO2 28% AND PEEP 5. CONTINUE TO SENIOR ENVIRONMENTAL SCIENTIST WITH SR ON MONITOR. NO RESP DISTRESS,NO SOB. JADIEL CATH TO LEFT FEMORAL,NO S/S OF INFECTION ON THE SITE. CONT ON IV NS AT 10 CC/HR.GT TO FEEDING NEPRO AT 35 CC/HR AND H20 AT 130 CC Q 4HRS. PER REPORT PT IS APPEAL FOR LTAC EVAL. AND TO FOLLOW UP IN AM.SKIN WARM TO TOUCH. NOTED GENERALIZED EDEMA, PT HAS DIALYSIS ON 09/09/18 COME OUT 1.5 LITER PER REPORT. ILLEOSTOMY TO RIGHT SIDE ABD . F/C IN PLACE WITH YELLOW URINE. GENTLE CARE GIVEN. KEPT CLEAN AND DRY.
--- NOTE | 2018-09-10 01:40 | NUR ---
REPOSITIONED PATIENT, APPLIED HYDRAGAURD AND PROVIDED SKIN CARE, ASSESSED DRESSINGS AND WOUNDS. PATIENT AFEBRILE, NO DISTRESS NOTED AT THIS TIME.
[2018-09-10] MEDS: Z-GUARD PASTE TP SCH ×2 (01:43→13:19)
--- NOTE | 2018-09-10 01:45 | NUR ---
ENDORSED CARE TO OTHER NIGHTSHIFT NURSE. PATIENT STABLE AT THIS TIME
--- NOTE | 2018-09-10 05:00 | NUR ---
BLOOD DRAWN DONE FOR CBC BMP, LIPASE,AMYLASE ,MAG AND PHOS. RESULT TO FOLLOW.
[2018-09-10] MEDS: VALPROATE SODIUM 750 MG in NACL 0.9% 100 ML IV SCH ×3 (05:24→20:40)
--- NOTE | 2018-09-10 05:30 | NUR ---
AM CARE GIVEN. ORAL CARE,BED BATH AND F/C. URINE 250CC REDDISH COLOR WITH SMALL BLOOD CLOTH,KEPT PT CLEAN AND DRY.
[2018-09-10 06:23] LABS: CREATININE 1.7 mg/dL (0.6-1.3)
[2018-09-10] MEDS: NACL 0.9% 1,000 ML IV SCH (06:35)
[2018-09-10 06:36] LABS: CARBON DIOXIDE 19.1 mmol/L (21-32)
[2018-09-10 06:37] LABS: ANION GAP 18.9 (8-16); MAGNESIUM 1.5 mg/dL (1.8-2.4); PHOSPHORUS 3.7 mg/dL (2.5-4.9)
[2018-09-10] MEDS: BLOOD GLUCOSE MONITORING 1 DEV DEV FS SCH ×4 (06:50→20:13)
[2018-09-10] MEDS: MIDODRINE 5 MG TAB PO SCH ×3 (06:50→19:56)
--- NOTE | 2018-09-10 06:50 | NUR ---
DR PARRISH COME TO SEE PT UP DATE PT STATUS TO MD. PER TO ASK IF STILL NEED FOR C.DIFF STOOL TEST. BLOOD SUGAR IS 63. PT ON GT FEEDING. CONT TO MONITOR CLOSELY. Addendum: 09/10/18 at 0655 by Hailey Delgado RN AWARE THE REDDISH WITH BLOOD CLOT IN URINE.
[2018-09-10 06:51] LABS: BASOPHILS % (AUTO) 0.1 % (0.0-2.0); EOSINOPHILS % (AUTO) 0.1 % (0.0-4.0); HEMOGLOBIN 8.5 g/dL (12.0-16.0); LYMPHOCYTES # (AUTO) 0.8 K/uL (2.5-16.5); LYMPHOCYTES % (AUTO) 3.7 % (20.5-51.1); MEAN CORPUSCULAR HEMOGLOBIN 32 pg (27-31); MEAN CORPUSCULAR HGB CONC 33 g/dL (33-37); MEAN CORPUSCULAR VOLUME 96.4 fL (80-94); MONOCYTES # (AUTO) 1.1 K/uL (0.8-1.0); MONOCYTES % (AUTO) 4.8 % (1.7-9.3); NEUTROPHILS # (AUTO) 20.5 K/uL (1.8-7.7); NEUTROPHILS % (AUTO) 91.3 % (42.2-75.2); RED BLOOD CELL COUNT(AUTO) 2.69 MIL/uL (4.20-5.40); RED CELL DISTRIBUTION WIDTH 16.7 % (11.6-13.7); WHITE BLOOD COUNT (AUTO) 22.5 K/uL (4.8-10.8)
[2018-09-10 07:01] LABS: PLATELET COUNT (AUTO) 65 K/uL (140-450)
--- NOTE | 2018-09-10 07:50 | NUR ---
RECEIVED PT FROM PM NURSE, PT OPEN EYES, DOES NOT FOLLOW COMMANDS. BEDSIDE MONITOR SHOWS ST 105S. TRACH TO VENT WITH SETTING FIO2 =28%, TV 400, AC=12, PEEP 5. CONJUNCTIVA EDEMA TO BOTH EYES NOTED. WHOLE BODY PITTING EDEMA NOTED, PT HAS ILEOSTOMY AND G-TUBE IN PLACE, TUBE FEEDING NEPRO AT 35 CC/HR. PT ALSO HAS F/C WITH BLOODY URINE NOTED. PT HAS A LEFT FEMORAL JADIEL CATH IN PLACE RUNNING 0.9 NS AT 10 CC/HR. PT ON WOUND BED MATTRESS. SEIZURE PRECAUTION IN PLACE, WILL CONTINUE TO MONITOR PT.
[2018-09-10] MEDS: FERROUS SULFATE 300 MG/5 ML UDC GT SCH (08:56)
[2018-09-10] MEDS: NYSTATIN 500 MU/5 ML UDC PO SCH ×4 (08:57→20:42)
[2018-09-10] MEDS: ZINC SULF 220 MG CAP GT SCH (08:57)
[2018-09-10] MEDS: VIT-B COMP/VIT-C/FOLIC ACID 1 TAB GT SCH (08:57)
[2018-09-10] MEDS: FAMOTIDINE 20 MG/2 ML VIAL IV SCH ×2 (08:57→20:42)
[2018-09-10] MEDS: ATORVASTATIN 80 MG TAB PO SCH (08:58)
[2018-09-10] MEDS: LINEZOLID 600 MG TAB GT SCH ×2 (08:58→20:40)
[2018-09-10] MEDS: levETIRAcetam 1,000 MG in NACL 0.9% 100 ML IV SCH ×2 (08:59→20:41)
[2018-09-10] MEDS: ACETAMINOPHEN 325 MG TAB PO PRN ×2 (09:30→13:27)
[2018-09-10] MEDS: MEROPENEM 500 MG in NACL 0.9% 50 ML IV SCH ×2 (10:03→20:42)
--- NOTE | 2018-09-10 10:30 | NUR ---
CHECKED PT TEMP AT 0930 =100.9 F, TYLENOL GIVEN ORDERED, WET TOWEL TO FOREHEAD, RECHECKED TEMP AT THIS TIME 99.2 F. WILL CONTINUE TO MONITOR.
--- NOTE | 2018-09-10 10:45 | NUR ---
EXPEDITED APPEAL FOR LTAC FAXED TO .
--- NOTE | 2018-09-10 11:37 | NUR ---
CONTACTED [facility]'S DEPARTMENT AT [phone], SPOKE TO KYRA. I ASKED HER TO CONFIRM IF THEY RECEIVED THE CLINICALS I FAXED. SHE STATED SHE DOES NOT SEE IT ON HER END AND NEED TO TRANSFER ME TO DEPARTMENT. 1145: GOT TRANSFERRED TO DEPARTMENT, SPOKE TO JEANNINE, SHE ALSO STATED THAT SHE CANNOT CONFIRM THE CLINICALS THAT I FAXED. SHE SAID SHE HAS TO TRANSFER ME TO ANOTHER DEPT. 1157: GOT TRANSFERRED TO [facility] DEPT ([phone]), SPOKE TO BENIGNO. HE STATED THAT HE DOES NOT SEE IT ON HIS END WELL. REFERENCE # [id number].
--- NOTE | 2018-09-10 12:34 | NUR ---
RECEIVED A CALL FROM ANGI OF [facility], EXPEDITED APPEAL DEPARTMENT OF [facility], CONFIRMED TO ME THAT THEY ARE DOING AN URGENT REVIEW PROCESS ON THIS CASE AND WILL GET RESPONSE WITHIN 72 HOURS AND A WRITTEN RESPONSE WITHIN 5 DAYS. SHE ALSO PROVIDED ME WITH THE NAME OF THE PERSON IN CHARGE OF THE CASE WHICH IS CESAR MitchJosé Miguel PHONE NUMBER [phone] Addendum: 09/10/18 at 1241 by Radha Antony CM PHONE NUMBER IS [phone] AND FAX NUMBER [phone]. USE REFERENCE NUMBER [id number] AND [id number]. AND REQUESTED TO FAX 1 WEEK OF CLINICALS TO THE SAID NUMBER. WILL FOLLOW UP.
[2018-09-10] MEDS: THERAHONEY GEL 42.5 GM TP SCH (13:19)
--- NOTE | 2018-09-10 13:27 | NUR ---
TYLENOL 625 MG GIVEN DUE TO TEMP 100.7F, COOL MEASURE IN PLACE.
[2018-09-10] MEDS ORDERED: MAGNESIUM OXIDE 400 MG TAB GT SCH (14:00)
--- NOTE | 2018-09-10 14:16 | NUR ---
ALL CLINICALS FAXED TO [phone].
--- NOTE | 2018-09-10 14:30 | NUR ---
RECHECKED TEMP 99.2F.
--- NOTE | 2018-09-10 14:33 | NUR ---
TOM FROM [facility] CALLED AND INFORMED ME THAT THEY ARE STILL REVIEWING THE APPEAL. PROVIDED HER OF MY CONTACT INFORMATION, IF IN CASE SOMETHING COMES UP. SHE ASKED IF I HAVE TRIED [facility] AND IF SOMEBODY FROM [facility] CAME TO EVALUATE THE PATIENT. TOLD HER THAT [facility] CAME ON FRIDAY AND WILLING TO ACCEPT THE PATIENT, BUT THE REQUEST FOR LTACH WAS DENIED. SHE RECOMMENDED SUB ACUTE. I ALSO RECOMMENDED [facility]'S CONTACT. CONTACTED [facility] REGARDING SUB ACUTE PLACEMENT, HE STATED THAT [facility] HAS A SUB ACUTE UNIT. I TOLD HIM THAT IS WHERE THE FAMILY WISHES THE PATIENT TO GO. HE SAID HE WILL UPDATE ME IF ANYTHING COMES UP.
--- NOTE | 2018-09-10 15:15 | NUR ---
IN TO CHECK PT. DR. SHAW TALKED TO PT'S ON THE PHONE.
--- NOTE | 2018-09-10 15:20 | NUR ---
RECEIVED A CALL FROM TOM NEVILLE) , SHE SAID SHE HAVE REACHED OUT TO LOTS OF SUBACUTE FACILITY, NO BEDS AVAILABLE AT THIS TIME. SHE ALSO MENTIONED [facility], I TOLD HER THAT I FAXED ALL CLINICALS TO [facility] AT [phone]. SHE ALSO STATED THAT SHE WILL KEEP LOOKING AND WILL KEEP ME POSTED.
[2018-09-10] MEDS: DEXTROSE 50% 50 ML SYR IVP PRN (16:35)
[2018-09-10] MEDS: FUROSEMIDE 40 MG/4 ML VIAL IVP SCH (16:35)
--- NOTE | 2018-09-10 17:27 | NUR ---
PT SUCTIONED OBTAINED MODERATE AMOUNT OF THICK PALE YELLOW SECRETIONS, AIRWAY IS PATENT AND TRACH IS SECURE. VENT ALARMS ON AND FUNCTIONING. PT NOT IN ANY DISTRESS AT THIS TIME.
--- NOTE | 2018-09-10 19:15 | NUR ---
RECEIVED REPORT FROM AM NURSE. PT AT BED EYES CLOSED. BREATHING REGULARLY. TRACH TO VENT. FI02 28% AC/VC SETTINGS, TV 400 RR 12, TV 400 PEEP 5. LUNG SOUNDS COARSE THROUGHOUT. PERRL 3MM, SLUGGISH, FLACC 0, HR REGULAR, S1S2 PRESENT, PULSES 2+ BILATERAL UPPER AND LOWER EXTREMITIES, GENERALIZED EDEMA, CAP REFILL <3S, ABDOMEN, SOFT, ROUND, NONDISTENDED, NONTENDER, BOWEL SOUNDS ACTIVE IN ALL QUADRANTS, GENERALIZED WEAKNESS, FC IN PLACE, GTUBE IN PLACE, IV FLUIDS RUNNING. TEMP 97.7 F, SKIN NON INTACT, WARM AND DRY, APPROPRIATE FOR ETHNICITY, DRESSINGS DRY AND INTACT, HOB AT 30 DEGREES, SIDERAILS UP X2, CALL LIGHT WITHIN REACH.
[2018-09-10] MEDS: ALBUTEROL SULFATE/IPRATROPIU 3 ML SOL IH PRN (19:47)
--- NOTE | 2018-09-10 20:15 | NUR ---
DR. PRUITT AT BEDSIDE. UPDATED MD ON PT CONDITION. NO NEW ORDERS. PT AT STABLE CONDITION AT THIS TIME. WILL CONTINUE TO MONITOR.
--- NOTE | 2018-09-10 21:11 | NUR ---
VENT CHECK DONE. VENT ALARMS ON AND AUDIBLE. AMBU BAG AT BEDSIDE. SUCTIONED SMALL AMOUNT OF THICK, YELLOW SECRETIONS. NO RESPIRATORY DISTRESS NOTED AT THIS TIME. WILL CONTINUE TO MONITOR.
--- NOTE | 2018-09-10 21:35 | NUR ---
DR. LINDSEY AT BEDSIDE. UPDATED MD ON PT CONDITION. NO NEW ORDERS. PT AT STABLE CONDITION AT THIS TIME. WILL CONTINUE TO MONITOR.
--- NOTE | 2018-09-10 22:30 | NUR ---
VAP ORAL CARE PERFORMED. SUCTIONED SCANT AMOUNT OF WHITE SPUTUM. PT TOLERATED PROCEDURE WELL. PT AT STABLE CONDITION AT THIS TIME. HOB 30 DEGREES, SIDERAILS UP X2, CALL LIGHT WITHIN REACH. WILL CONTINUE TO MONITOR.
--- NOTE | 2018-09-10 23:15 | NUR ---
PT GTUBE RESIDUAL CHECKED. 150 ML. HELD FEEDING.
[2018-09-11] VITALS (24 sets, daily range): BP systolic 102–153; BP diastolic 46–80
--- NOTE | 2018-09-11 00:25 | NUR ---
CHECKED PT GTUBE RESIDUAL, 50 ML, RESTARTED FEEDING
[2018-09-11] MEDS: Z-GUARD PASTE TP SCH ×2 (01:13→13:00)
--- NOTE | 2018-09-11 02:28 | NUR ---
PT AT BED, RESTING, EYES CLOSED, BREATHING REGULARLY, HOB 30 DEGREES, SIDERAILS UP X2, CALL LIGHT WITHIN REACH. PT AT STABLE CONDITION AT THIS TIME. WILL CONTINUE TO MONITOR.
[2018-09-11] MEDS: VALPROATE SODIUM 750 MG in NACL 0.9% 100 ML IV SCH ×3 (05:00→20:04)
[2018-09-11 06:20] LABS: ANION GAP 21.2 (8-16); CARBON DIOXIDE 16.7 mmol/L (21-32); CREATININE 2.3 mg/dL (0.6-1.3); POTASSIUM 3.9 mmol/L (3.5-5.1)
[2018-09-11 06:23] LABS: MAGNESIUM 1.6 mg/dL (1.8-2.4); PHOSPHORUS 4.1 mg/dL (2.5-4.9)
[2018-09-11] MEDS: BLOOD GLUCOSE MONITORING 1 DEV DEV FS SCH ×4 (06:30→20:32)
[2018-09-11] MEDS: DEXTROSE 50% 50 ML SYR IVP PRN ×2 (06:31→16:57)
[2018-09-11] MEDS: MIDODRINE 5 MG TAB PO SCH ×3 (06:32→20:03)
[2018-09-11] MEDS: NACL 0.9% 1,000 ML IV SCH (06:32)
[2018-09-11 06:40] LABS: HEMATOCRIT 23.8 % (36-48); HEMOGLOBIN 7.8 g/dL (12.0-16.0); MEAN CORPUSCULAR HEMOGLOBIN 32 pg (27-31); MEAN CORPUSCULAR HGB CONC 33 g/dL (33-37); MEAN CORPUSCULAR VOLUME 97.2 fL (80-94); RED BLOOD CELL COUNT(AUTO) 2.45 MIL/uL (4.20-5.40); RED CELL DISTRIBUTION WIDTH 16.6 % (11.6-13.7); WHITE BLOOD COUNT (AUTO) 24.8 K/uL (4.8-10.8)
[2018-09-11 07:04] LABS: PLATELET COUNT (AUTO) 50 K/uL (140-450)
[2018-09-11 07:07] LABS: LYMPHOCYTES % (MANUAL) 5 % (20-46); MONOCYTES % (MANUAL) 5 % (5-12)
--- NOTE | 2018-09-11 07:20 | NUR ---
RECEIVED PT FROM PM NURSE, PT OPEN EYES,CONJUNCTIVA EDEMA TO BOTH EYES NOTED. DOES NOT FOLLOW COMMANDS. BEDSIDE MONITOR SHOWS ST 102-108S. TRACH TO VENT WITH SETTING FIO2 =28%, TV 400, AC=12, PEEP 5. WHOLE BODY PITTING EDEMA NOTED, PT HAS ILEOSTOMY AND G-TUBE IN PLACE, TUBE FEEDING NEPRO AT 35 CC/HR. PT ALSO HAS F/C WITH BLOODY URINE NOTED. PT HAS A LEFT FEMORAL JADIEL CATH IN PLACE RUNNING 0.9 NS AT 10 CC/HR. PT ON WOUND BED MATTRESS. SKIN NON INTACT, SEE WOUND ASSESSMENT. SEIZURE PRECAUTION IN PLACE, WILL CONTINUE TO MONITOR PT. NO FEVER.
--- NOTE | 2018-09-11 07:25 | NUR ---
CHANGE OF SHIFT REPORT GIVEN TO AM NURSE FOR CONTINUITY OF CARE. PT AT STALE CONDITION AT THIS TIME.
--- NOTE | 2018-09-11 08:05 | NUR ---
turned and repositioned pt, oral care given. pastora care given.
[2018-09-11] MEDS: VIT-B COMP/VIT-C/FOLIC ACID 1 TAB GT SCH (08:14)
[2018-09-11] MEDS: FERROUS SULFATE 300 MG/5 ML UDC GT SCH (08:14)
[2018-09-11] MEDS: FUROSEMIDE 40 MG/4 ML VIAL IVP SCH ×2 (08:14→16:58)
[2018-09-11] MEDS: NYSTATIN 500 MU/5 ML UDC PO SCH ×4 (08:14→20:05)
[2018-09-11] MEDS: ATORVASTATIN 80 MG TAB PO SCH (08:15)
[2018-09-11] MEDS: LINEZOLID 600 MG TAB GT SCH ×2 (08:15→20:05)
[2018-09-11] MEDS: FAMOTIDINE 20 MG/2 ML VIAL IV SCH ×2 (08:15→20:05)
[2018-09-11] MEDS: ZINC SULF 220 MG CAP GT SCH (08:22)
--- NOTE | 2018-09-11 08:40 | NUR ---
RESIDUE CHECKED 50 CC, RETURNED IT BACK. PER PM NURSE, DO NOT HOLD TUBE FEEDING UNLESS IT IS MORE THAN 200CC. PT HAD HYPOGLYCEMIA THIS MORNING .
[2018-09-11] MEDS: ALBUTEROL SULFATE/IPRATROPIU 3 ML SOL IH PRN ×3 (08:56→19:48)
--- NOTE | 2018-09-11 08:56 | NUR ---
RECEIVED ON [employer] R860 PLUGGED INTO RED OUTLET TOLERATING WELL WITHOUT ADVERSE REACTIONS NOTED TO A PORTEX DCT #7 AIRWAY SECURED WITH A YEISON TRACH TIE CUFF PRESSURE CHECKED NOTED AMBU BAG AT BEDSIDE BREATH SOUNDS NOTED WITH BILATERAL PULMONARY CONGESTION DEEP TRACHEAL SUCTION FOR MODERATE THICK YELLOW SECRETIONS AIRWAY NOW PATENT
[2018-09-11] MEDS: MEROPENEM 500 MG in NACL 0.9% 50 ML IV SCH ×2 (09:41→20:04)
--- NOTE | 2018-09-11 10:05 | NUR ---
PT'S WAS UNHAPPY FOR TRANSFERRING PT OUT.PT'S TALKED TO HOUSE SUP REGARDING TRANSFERRING.
--- NOTE | 2018-09-11 10:39 | NUR ---
RESTING WELL EQUAL CHEST RISE BREATH SOUNDS CLEAR BILATERAL WITH GOOD AERATION THROUGHOUT BILATERAL LUNG MONTERO AIRWAY PATENT
[2018-09-11] MEDS: levETIRAcetam 1,000 MG in NACL 0.9% 100 ML IV SCH ×2 (10:59→20:04)
--- NOTE | 2018-09-11 11:11 | NUR ---
called Jeni child support case officer at [facility] at [phone] and left a message. Jeni called back and she received my faxed and will forward the information to the bilingual medical assistant, she stated that it will be no problem to give auth for hospital stay. Jeni will call me back
--- NOTE | 2018-09-11 11:13 | NUR ---
Spoke to the , Mr. Nagy, and he does not want to transfer his to SNF, he wants higher level of care. Dr. Castillo made aware.
--- NOTE | 2018-09-11 11:15 | NUR ---
called Yoseph at [phone] and said no bed at [facility] subacute level and patient on waiting list
--- NOTE | 2018-09-11 11:54 | NUR ---
SW called SNFs around [facility]. [facility] - [phone] - No beds available. [facility] - [phone] - Facility unable to accept < 65+ years of age. [facility] - [phone] - No beds available. [facility] - [phone] - No female beds available.
[2018-09-11] MEDS ORDERED: MAGNESIUM OXIDE 400 MG TAB GT SCH (12:00)
--- NOTE | 2018-09-11 12:00 | NUR ---
DR. SHAW CAME IN TO CHECK PT. DR. SHAW CALLED DR. PARRISH TO COME TO ICU TO DISCUSS PT'S SITUATION. PT'S AT BEDSIDE. THEY AGREED TO KEEP THIS PT THIS WEEKEND AND TRANSFER THIS PT THE NEXT WEEK.
--- NOTE | 2018-09-11 12:08 | NUR ---
GOOD CHEST RISE DEEP TRACHEAL SUCTION FOR SCATTERED TICK YELLOW SECRETIONS AIRWAY PATENT
--- NOTE | 2018-09-11 12:59 | NUR ---
information faxed to [facility], no bed available. will follow up
[2018-09-11] MEDS: THERAHONEY GEL 42.5 GM TP SCH (13:00)
--- NOTE | 2018-09-11 13:14 | NUR ---
Cady from [facility] called and gave authorization for 7 more days stay at [facility] and will fax the agreement letter. Will continue to monitor. Dr. Castillo made aware.
--- NOTE | 2018-09-11 13:17 | NUR ---
09/11/18 RD FOLLOW UP COMPLETED PLEASE REFER TO NUTRITION ASSESSMENT UNDER CARE ACTIVITY FOR ESTIMATED NUTRITIONAL NEEDS. 1. CONTINUE DIET NEPRO AT 35 ML/HR -THIS PROVIDES 611ML TOTAL VOLUME, 1512KCAL, 68GM PROTEIN, 780ML TOTAL FREE WATER. IT MEETS 92% OF ESTIMATED ENERGY NEEDS AND 100% OF ESTIMATED PROTEIN NEEDS. 2. CONTINUE FREE WATER FLUSH 130 ML Q4H. 3. CONTINUE NEPRHO-JONN AND ZINC SULFATE FOR WOUND HEALING RD TO FOLLOW-UP 2-3 DAYS, HIGH RISK NORBERT RICO, RD
--- NOTE | 2018-09-11 13:17 | NUR ---
Cady from [facility] [phone]
--- NOTE | 2018-09-11 13:40 | NUR ---
Alexandra from [facility] called and no dialysis bed inside [facility]. , stated that sister facility in [place] might be an option and can accommodate and their number to call them [phone] and to say that [facility] referred us.
--- NOTE | 2018-09-11 14:02 | NUR ---
STABLE SOB NOTED EQUAL CHEST RISE AIRWAY PATENT
--- NOTE | 2018-09-11 14:10 | NUR ---
BEDSIDE MONITOR SHOWS HR 90-105S, NO S/S OF RESPIRATORY DISTRESS NOTED.
--- NOTE | 2018-09-11 16:00 | NUR ---
TURNED AND REPOSITIONED PT. ORAL CARE GIVEN. NO S/S OF RESPIRATORY DISTRESS NOTED.
--- NOTE | 2018-09-11 16:12 | NUR ---
GOOD CHEST RISE AIRWAY PATENT
--- NOTE | 2018-09-11 16:22 | NUR ---
ABBEY STAFF COORDINATOR BROUGHT, THE LETTER OF AUTHORIZATION FROM [facility] AUTHORIZING PATIENT FOR LTAC AT [facility] FOR 7 DAYS EFFECTIVE TODAY. I CALLED ANTIONE RODRIGUEZ FOR [facility] [phone] NOTIFIED HIM THAT THERE IS AUTH FOR [place], PER ANTIONE HE WILL LOOK FOR A BED AT [facility] AND WILL CALL BACK. NOTIFIED [facility] ICU TO ARRANGE TRANSPORT. NOTIFIED DR PARRISH WELL . NOTIFIED ANTIONE TO CALL ICU TO COORDINATE TRANSFER.
--- NOTE | 2018-09-11 17:25 | NUR ---
CALLED PT'S REGARDING TRANSFER, PT'S WAS UPSET, HE SAID DR. SHAW, DR. PARRISH AGREED TO TRANSFER PT NEXT WEEK, WHY DID THEY WANT TO TRANSFER NOW. CALLED .
--- NOTE | 2018-09-11 17:36 | NUR ---
PATIENT'S SON, ANURAG BAIRD, UPDATED ON PLAN OF PATIENT'S TRANSFER TO [facility], PATIENT'S SON STATES THAT PATIENT'S FATHER IS UPSET DUE TO SPEAKING WITH DR. HALL AND DR. SHAW IN AGREEMENT THAT PATIENT WOULD NOT BE TRANSFERRED TODAY. PER PATIENT'S SON, HE WOULD LIKE TO STICK TO THE AGREEMENT THAT PATIENT WOULD NOT BE TRANSFERRED TODAY.
--- NOTE | 2018-09-11 17:38 | NUR ---
STABLE EQUAL CHEST RISE DEEP TRACHEAL SUCTION FOR MODERATE THICK YELLOW SECRETIONS AIRWAY PATENT
--- NOTE | 2018-09-11 18:00 | NUR ---
PT CALLED IN AND STATED HE AGREED TO TRANSFER TOMORROW IF PHYSICIAN WANTS TO TRANSFER.
--- NOTE | 2018-09-11 18:52 | NUR ---
CALLED PT'S REGARDING TRANSFER, PT STATED HE IS GOING TO DRIVE TO [place] TO CHECK.
--- NOTE | 2018-09-11 19:30 | NUR ---
RECEIVED REPORT FROM MORNING RN, SULMA, FOR CONTINUITY OF CARE. VS STABLE AT THIS TIME. AFEBRILE. FLACC 0. PT DOES NOT APPEAR TO BE EXPERIENCING ANY DISCOMFORT AT THIS TIME. PERRL. LUNG SOUNDS CLEAR. TRACH TO VENT WITH SETTINGS: AC12, FIO2 28%, TV 400 AND PEEP 5. RESPIRATIONS EVEN AND UNLABORED. CHEST RISE SYMMETRIC. S1+S2 HEARD[address] ON MONITOR. PULSES PALPABLE IN ALL EXTREMITIES. ABDOMEN ROUND, SOFT AND NONDISTENDED. GTUBE IN PLACE. RECEIVED PT ON NEPRO AT 35ML/HR. RESIDUAL CHECKED AND WAS 200ML. FEEDING HELD PER PARAMETER AT THIS TIME. ILEOSTOMY IN PLACE. PT HAS LIQUID, BROWN BM NOTED. [place] CATHETER IN PLACE THAT IS DRAINING DARK FANTA WITH DARK RED TINGED. SCD IN PLACE. RECEIVED PT WITH NS AT 10ML/HR. PT HAS LEFT FEMORAL JADIEL CATH WITH PIGTAIL. LINE IS PATENT, INTACT, AND ASYMPTOMATIC. SKIN IS WARM, DRY, AND ASYMPTOMATIC. ALL SAFETY PRECAUTIONS ARE IN PLACE. HOB 30 DEGREES. WILL CONTINUE TO MONITOR PT.
--- NOTE | 2018-09-11 19:45 | NUR ---
RECEIVED CALL FROM ANTIONE WILLIS CM, PT ACCEPTED TO [place] [facility]. ACCEPTING MD: DR. LEVIN. PLAN TO D/C TOMORROW. PHONE # [phone]. TRANSPORTATION ON WILL CALL FOR TOMORROW.
[2018-09-11] MEDS: SODIUM BICARBONATE 650 MG TAB GT SCH (20:04)
--- NOTE | 2018-09-11 21:33 | NUR ---
NO CHANGE IN PT'S CONDITION AT THIS TIME. RESPIRATIONS REMAIN EVEN AND UNLABORED. VS STABLE AT THIS TIME. ALL SAFETY PRECAUTIONS ARE STILL IN PLACE. WILL CONTINUE TO MONITOR PT.
--- NOTE | 2018-09-11 22:05 | NUR ---
DR. LINDSEY AT BEDSIDE AT THIS TIME. UPDATED HIM REGARDING THE PT. RECEIVED AN ORDER FOR A CHEST X-RAY IN THE AM.
[2018-09-12] VITALS (16 sets, daily range): BP systolic 100–120; BP diastolic 46–58
--- NOTE | 2018-09-12 00:45 | NUR ---
AFEBRILE. VS STABLE. STILL ST ON MONITOR. RESPIRATIONS ARE EVEN AND UNLABORED. CHANGED FEEDING SET UP AND RESUMED FEEDING. GTUBE RESIDUAL AND WAS ONLY 30ML. WILL CONTINUE TO MONITOR.
[2018-09-12] MEDS: Z-GUARD PASTE TP SCH ×2 (01:14→12:04)
--- NOTE | 2018-09-12 03:15 | NUR ---
ST ON MONITOR. PT AFEBRILE. NO CHANGE IN PT'S CONDITION. VS WNL. PT'S EYES ARE CLOSED. DOES NOT APPEAR TO BE EXPERIENCING ANY DISCOMFORT AT THIS TIME. RESPIRATIONS ARE EVEN AND UNLABORED. ALL SAFETY PRECAUTIONS ARE IN PLACE.
[2018-09-12] MEDS: ALBUTEROL SULFATE/IPRATROPIU 3 ML SOL IH PRN (03:29)
--- NOTE | 2018-09-12 03:45 | NUR ---
MORNING CARE PROVIDED TO PT. TOLERATED BEING TURNED AND REPOSITIONED FAIRLY. GTUBE RESIDUAL ONLY 20ML. SEIZURE PRECAUTIONS STILL IN PLACE. FLACC 0. PT DOES NOT APPEAR TO BE EXPERIENCING ANY DISCOMFORT. RESPIRATIONS EVEN AND UNLABORED.
[2018-09-12] MEDS: VALPROATE SODIUM 750 MG in NACL 0.9% 100 ML IV SCH ×2 (05:21→12:12)
[2018-09-12] MEDS: NACL 0.9% 1,000 ML IV SCH (05:57)
--- NOTE | 2018-09-12 06:30 | NUR ---
DR ARNOLD @ BEDSIDE. UPDATED PT CONDITION, NO NEW ORDERS. MD TO FOLLOW UP WITH D/C ORDERS.
--- NOTE | 2018-09-12 06:32 | NUR ---
called Addendum: 09/12/18 at 0634 by Emiliano Guadalupe RN [facility] SETUP ON WILL CALL, CALL TO VERIFY PICKUP TIME. FACE SHEET AND [facility] SHEET FAXED.
[2018-09-12] MEDS: BLOOD GLUCOSE MONITORING 1 DEV DEV FS SCH ×2 (06:50→12:03)
[2018-09-12] MEDS: MIDODRINE 5 MG TAB PO SCH ×2 (06:50→12:12)
--- NOTE | 2018-09-12 07:10 | NUR ---
RECEIVED REPORT FROM ACCREDITATION SPECIALIST RNVINAY. PT IS APHASIC, OPEN EYES SPONTANEOUSLY. AFEBRILE. FLACC 0. PERRL, SLUGGISH, SIZE 3. LUNG SOUNDS CLEAR, DIMINISHED. TRACH TO VENT WITH SETTINGS: AC/VC, FIO2 28%, RR12, TV 400 AND PEEP 5. NO RESPIRATORY DISTRESS NOTED. S1+S2 HEARD[address] ON MONITOR. BOWELS SOUNDS ACTIVE. PULSES PALPABLE IN ALL EXTREMITIES. ABDOMEN ROUND, SOFT AND NONDISTENDED. PT HAS ANASARCA, PITTING 1+. G TUBE RUNNING NEPRO AT 35ML/HR. RESIDUAL 0ML AT THIS TIME. ILEOSTOMY IN PLACE, YELLOW BM NOTED. [place] CATHETER IN PLACE DRAINING CLOUDY URINE WITH DARK RED BLOOD TINGED. SCD IN PLACE. PT HAS LEFT FEMORAL JADIEL CATH WITH PIGTAIL, RUNNING NS AT 10ML/HR. LINE IS PATENT, INTACT, AND ASYMPTOMATIC. ALL SAFETY PRECAUTIONS ARE IN PLACE. HOB 30 DEGREES. WILL CONTINUE TO MONITOR.
--- NOTE | 2018-09-12 07:10 | NUR ---
REPORT GIVEN TO MORNING RNPRABHAKAR, FOR CONTINUITY OF CARE. VS STABLE AT THIS TIME.
--- NOTE | 2018-09-12 08:05 | NUR ---
WOUNDS PIC TAKEN. SACRAL PRESSURE WOUND HAS BEEN CLEANED WITH WOUND CLEANSE. APPLIED THERAHONEY, AND ADAPTIC, COVERED WITH OPTIFOAM. MULTIPLE SKIN TEARS NOTED, PIC TAKEN. SMALL OPTIFOAM APPLIED TO LEFT BUTTOCK SKIN TEAR.
[2018-09-12] MEDS ORDERED: PRO5 PO (08:42)
[2018-09-12] MEDS ORDERED: COL100L PO (08:42)
[2018-09-12] MEDS ORDERED: GLUC-805 FS (08:42)
[2018-09-12] MEDS ORDERED: LINE600T GT ×2 (08:42→10:36)
[2018-09-12] MEDS ORDERED: [UNRECOGNIZED DRUG - CODE] PO (08:42)
[2018-09-12] MEDS ORDERED: HUMSLIDE SUBQ (08:42)
[2018-09-12] MEDS ORDERED: SODI650T2 GT (08:42)
[2018-09-12] MEDS ORDERED: PEP20I IV (08:42)
[2018-09-12] MEDS ORDERED: LAS20I IVP (08:42)
[2018-09-12] MEDS ORDERED: FER300L GT (08:42)
[2018-09-12] MEDS ORDERED: NEP GT (08:42)
[2018-09-12] MEDS ORDERED: ACET-1182 PO (08:42)
[2018-09-12] MEDS ORDERED: LIP80 PO (08:42)
[2018-09-12] MEDS ORDERED: ALBU3SOL83 IH (08:42)
[2018-09-12] MEDS ORDERED: CEFT1PDS83 IV ×2 (08:43→10:36)
[2018-09-12] MEDS: NYSTATIN 500 MU/5 ML UDC PO SCH ×2 (08:55→12:12)
[2018-09-12] MEDS: FERROUS SULFATE 300 MG/5 ML UDC GT SCH (08:56)
[2018-09-12] MEDS: SODIUM BICARBONATE 650 MG TAB GT SCH (08:56)
[2018-09-12] MEDS: ZINC SULF 220 MG CAP GT SCH (08:56)
[2018-09-12] MEDS: FUROSEMIDE 40 MG/4 ML VIAL IVP SCH (08:57)
[2018-09-12] MEDS: FAMOTIDINE 20 MG/2 ML VIAL IV SCH (08:57)
[2018-09-12] MEDS ORDERED: MEROPENEM 500 MG in NACL 0.9% 50 ML IV SCH (09:00)
--- NOTE | 2018-09-12 09:00 | NUR ---
CALLED. MADE AWARE OF PT STATUS AND PLAN TO TRANSFER TO [facility]. WANTED TO DO LABS BEFORE TRANSFERRING PT. HAVE DR. TOBIAS TALK TO THE OVER PHONE ABOUT TRANSFER AND LABS ORDER. STILL PROVIDED TELEPHONE CONSENT TO TRANSFER PT TO [facility] AND FOR DISCLOSER OF PT INFORMATION TO [facility]. SAID HE WILL BE HERE TODAY.
[2018-09-12] MEDS: ATORVASTATIN 80 MG TAB PO SCH (09:07)
[2018-09-12] MEDS: LINEZOLID 600 MG TAB GT SCH (09:07)
[2018-09-12] MEDS: VIT-B COMP/VIT-C/FOLIC ACID 1 TAB GT SCH (09:10)
[2018-09-12] MEDS: levETIRAcetam 1,000 MG in NACL 0.9% 100 ML IV SCH (09:26)
--- NOTE | 2018-09-12 10:46 | NUR ---
CALLED AND SPOKE TO DR. ARNOLD. MADE AWARE ABOUT 'S CONCERN REGARDING LABS AND ALSO ABOUT WILL COME HERE. DR. ARNOLD SAID WE CAN TRANSFER PATIENT. OKAY TO CALL AND ARRANGE TRANSPORTATION. DOCTOR SAID HE WILL TALK TO THE .
--- NOTE | 2018-09-12 11:10 | NUR ---
DR ARNOLD TALKED TO THE FAMILY. REPORTED TO DR ARNOLD THAT THE URINE IN [place] WAS BLOOD TINGED. DR ARNOLD SAID IT WAS FROM UTI. NO NEW ORDERS AT THIS TIME.
--- NOTE | 2018-09-12 11:14 | NUR ---
IN ICU. CALLED DR. ARNOLD HAVE HIM SPOKE TO . DR. ARNOLD EXPLAINED LABS AND PLAN OF CARE IN [place]. MADE AWARE OF ARRANGEMENT OF TRANSPORTATION. SAID OKAY TO ARRANGE TRANSPORT. WILL CALL [facility].
--- NOTE | 2018-09-12 11:15 | NUR ---
Dr ibarhim spoke to son regarding transfer and pts condition.Family agreed.
--- NOTE | 2018-09-12 11:20 | NUR ---
CALLED [facility]# SPOKE TO BRITTNEY. ARRANGED FOR CCRT TRANSPORTATION TO [facility] [address], [place], [address] FOR 1400. AND RN AWARE.
[2018-09-12] MEDS: THERAHONEY GEL 42.5 GM TP SCH (12:03)
--- NOTE | 2018-09-12 12:29 | NUR ---
PT NOT IN ANY DISTRESS AT THIS TIME. TRACH SECURE WITH A PATENT AIRWAY. WILL CONTINUE TO MONITOR.
--- NOTE | 2018-09-12 13:58 | NUR ---
NADYA DC'D PER MD ORDER. PT TOLERATED WELL.
--- NOTE | 2018-09-12 14:01 | NUR ---
VENT CHECK COMPLETED. PT NOT IN ANY DISTRESS. TRACH IS SECURE WITH A PATENT AIRWAY.
--- NOTE | 2018-09-12 14:05 | NUR ---
CALLED [facility], REPORT GIVEN TO NURSE HERNANDEZ. ACCEPTING DR IS DR EDGE. LAST VITALS PROVIDED, LAST BS 79 AT 1200PM. VENT SETTING PROVIDED, G TUBE FEEDING SETTING PROVIDED. POC DISCUSSED.
--- NOTE | 2018-09-12 14:25 | NUR ---
REPORT GIVEN TO NABOR ARNOLD NURSE. PT IN STABLE CONDITION. ST 102 ON MONITOR. FEEDING TUBE FLUSHED AND CLAMPED. NO S/S OF ACUTE DISTRESS NOTED. AT BEDSIDE. DC PAPER SIGNED BY PT'S . ALL DC PACKETS AND CD GIVEN TO NABOR ARNOLD. TOOK ALL BELONGINGS. PT LEFT WITH [facility].
--- NOTE | 2018-09-12 15:12 | NUR ---
CALLED [facility] # , SPOKE TO CAMILA. MADE AWARE THAT WE HAVE MATTRESS TO BE PICKED UP. CAMILA PROVIDED CONFIRMATION # [id number] AND SAID LOAN SERVICING OFFICER WILL CALL US AND GIVE PREPARED FOODS TEAM LEADER TIME.
== END 2018-09-12 14:30 | DRG 870 ==
LOC: MED 14:54 → UNDOADMIN 17:49 → MTU 17:49 → MIC 18:54
PROVIDERS: ADMIT General Practice; ATTEND General Practice
PROC: 5A1955Z Respiratory Ventilation, Greater than 96 Consecutive Hours (ICD-10-PCS; principal; 2018-08-31)
PROC: 02HV33Z Insertion of Infusion Device into Superior Vena Cava, Percutaneous Approach (ICD-10-PCS; 2018-08-31)
PROC: 5A1D70Z Performance of Urinary Filtration, Intermittent, Less than 6 Hours Per Day (ICD-10-PCS; 2018-08-31)
PROC: B54CZZA Ultrasonography of Left Lower Extremity Veins, Guidance (ICD-10-PCS; 2018-08-31)
PROC: 30233N1 Transfusion of Nonautologous Red Blood Cells into Peripheral Vein, Percutaneous Approach (ICD-10-PCS; 2018-09-01)
PROC: 5A1D70Z Performance of Urinary Filtration, Intermittent, Less than 6 Hours Per Day (ICD-10-PCS; 2018-09-02)
PROC: 5A1D70Z Performance of Urinary Filtration, Intermittent, Less than 6 Hours Per Day (ICD-10-PCS; 2018-09-04)
PROC: 5A1D70Z Performance of Urinary Filtration, Intermittent, Less than 6 Hours Per Day (ICD-10-PCS; 2018-09-07)
PROC: 5A1D70Z Performance of Urinary Filtration, Intermittent, Less than 6 Hours Per Day (ICD-10-PCS; 2018-09-09)
DX: A41.9 Sepsis, unspecified organism (principal); L89.154 Pressure ulcer of sacral region, stage 4; N17.0 Acute kidney failure with tubular necrosis; E43 Unspecified severe protein-calorie malnutrition; J96.21 Acute and chronic respiratory failure with hypoxia; K85.90 Acute pancreatitis without necrosis or infection, unspecified; J18.9 Pneumonia, unspecified organism; R65.21 Severe sepsis with septic shock; G93.41 Metabolic encephalopathy; I50.43 Acute on chronic combined systolic (congestive) and diastolic (congestive) heart failure; N39.0 Urinary tract infection, site not specified; E87.0 Hyperosmolality and hypernatremia; E87.2 Acidosis; N17.9 Acute kidney failure, unspecified; B37.0 Candidal stomatitis; Z99.11 Dependence on respirator [ventilator] status; E87.5 Hyperkalemia; B96.20 Unspecified Escherichia coli [E. coli] as the cause of diseases classified elsewhere; G40.909 Epilepsy, unspecified, not intractable, without status epilepticus; J40 Bronchitis, not specified as acute or chronic; K21.9 Gastro-esophageal reflux disease without esophagitis; N18.9 Chronic kidney disease, unspecified; R13.10 Dysphagia, unspecified; K73.9 Chronic hepatitis, unspecified; D53.9 Nutritional anemia, unspecified; R19.7 Diarrhea, unspecified; E83.42 Hypomagnesemia; E83.39 Other disorders of phosphorus metabolism; E87.6 Hypokalemia; E87.70 Fluid overload, unspecified; Z68.21 Body mass index [BMI] 21.0-21.9, adult; Z86.718 Personal history of other venous thrombosis and embolism; Z86.73 Personal history of transient ischemic attack (TIA), and cerebral infarction without residual deficits; Z88.6 Allergy status to analgesic agent; Z93.1 Gastrostomy status; Z93.3 Colostomy status; Z74.01 Bed confinement status
CPT/HCPCS: 36415; 36556; 36600; 70450; 71045; 76770; 80048; 80053; 80202; 81001; 82040; 82140; 82150; 82272; 82550; 82553; 82607; 82728; 82746; 82803; 82948; 83036; 83540; 83605; 83690; 83735; 83880; 84100; 84439; 84443; 84484; 85025; 85045; 85610; 85730; 86704; 86706; 86708; 86709; 86803; 86886; 86900; 86901; 86920; 87040; 87045; 87070; 87081; 87086; 87186; 87205; 87340; 89220; 90935; 93005; 93970; 94002; 94003; 94640; 96361; 96372; 96374; 96375; 99291; C1751; J0610; J0696; J0713; J1200; J1642; J1644; J1720; J1815; J1940; J1953; J2060; J2185; J2543; J2916; J2930; J3370; J3411; J3475; J3480; J3490; J7030; J7060; J7613; J7620; P9016; P9046; Q0092; Q0163